=== PATIENT | male | born 1960 | race Caucasian/White ===

== ENCOUNTER 2017-10-14 09:01 | Emergency (ER) | payer MEDICARE, OTHER ==
[~2017-10-14] VITALS: Ht 177.8 cm; Wt 109.0 kg
[~2017-10-14 09:01] MED LIST: ALBU8HFA IH; ATOR40TA PO; DES150T PO; DOCU-28 PO; FLO0.4C PO; HYDR-568 PO; LISI-600 PO; METH500T PO; NORT25CA5 PO; OXYB5TAB11 PO; UMEC1DIS IH
[2017-10-14 09:42] LABS: CLARITY,URINE CLOUDY (Clear); COLOR,URINE YELLOW (Yellow); GLUCOSE, URINE NEGATIVE (Neg); KETONES,URINE NEGATIVE (Neg); LEUKOCYTE ESTERASE ,URINE SMALL (Neg); NITRITES, URINE NEGATIVE (Neg); OCCULT BLOOD,URINE TRACE-INTACT (Neg); PROTEIN,URINE TRACE mg/dl (Neg); UROBILINOGEN,URINE 0.2 E.U/dL (0.2-1.0)
[2017-10-14 09:42] LABS: BASOPHILS # (AUTO) 0.2 X10'3 (0-0.2); BASOPHILS % (AUTO) 1.1 % (0-1); EOSINOPHILS # (AUTO) 0.1 X10'3 (0-0.9); EOSINOPHILS % (AUTO) 0.8 % (0-6); HEMATOCRIT 43.3 % (42.0-52.0); HEMOGLOBIN 14.3 g/dl (14.0-17.9); LYMPHOCYTES # (AUTO) 2.1 X10'3 (1.1-4.8); LYMPHOCYTES % (AUTO) 13.6 % (21-51); MEAN CORPUSCULAR HEMOGLOBIN 29.5 PG (27.0-31.0); MEAN CORPUSCULAR VOLUME 89.4 FL (78-98); MEAN PLATELET VOLUME 8.3 FL (7.4-10.4); MONOCYTES # (AUTO) 1.4 X10'3 (0-0.9); MONOCYTES % (AUTO) 9.2 % (2-12); NEUTROPHILS # (AUTO) 11.5 X10'3 (1.8-7.7); NEUTROPHILS % (AUTO) 75.3 % (42-75); PLATELET COUNT 219 X10'3 (140-440); RED BLOOD COUNT 4.85 X10'6 (4.70-6.10); RED CELL DISTRIBUTION WIDTH 12.9 % (11.5-14.5); WHITE BLOOD COUNT 15.3 X10'3 (4.5-11.0)
[2017-10-14 09:44] LABS: UA COLLECTION TYPE CLN CATCH MIDSTREAM
[2017-10-14 09:48] LABS: BACTERIA,URINE 2+ /HPF (Neg); MUCUS STRANDS MODERATE /LPF (Neg); RBC,URINE 0-2 /HPF (0-2); SQUAMOUS EPITHELIAL CELL,UR FEW /LPF (FEW); WBC CLUMPS,URINE MODERATE /HPF (NEGATIVE); WBC,URINE 50-100 /HPF (0-4)
[2017-10-14 09:55] LABS: ALANINE AMINOTRANSFERASE 54 U/L (12-78); ALBUMIN 3.9 G/DL (3.4-5.0); ALKALINE PHOSPHATASE 78 IU/L (46-116); ANION GAP 9 (8-16); ASPARTATE AMINO TRANSFERASE 25 U/L (10-37); BILIRUBIN,TOTAL 0.6 MG/DL (0.1-1.0); BLOOD UREA NITROGEN 25 MG/DL (7-18); CALCIUM 8.8 MG/DL (8.5-10.1); CHLORIDE 104 MMOL/L (99-107); GLUCOSE 97 MG/DL (70-104); LIPASE 180 U/L (73-393); POTASSIUM 4.5 MMOL/L (3.5-5.1); SODIUM 138 MMOL/L (135-145); TOTAL CARBON DIOXIDE 25.3 MMOL/L (24-32); TOTAL PROTEIN 7.9 G/DL (6.4-8.2); eGFR 77 ML/MIN
[2017-10-14] MEDS ORDERED: CefTRIAXone 2gm/D5W 50ml 50 ML IV ONE (10:00)
[2017-10-14] MEDS ORDERED: PHEN-716 PO (10:44)
[2017-10-14] MEDS ORDERED: NITR100C6 PO (10:44)
[2017-10-14 10:55] VITALS: BP 115/79
== END 2017-10-14 11:00 | disposition home or self-care (01) ==
LOC: ER 09:01
DX: N39.0 Urinary tract infection, site not specified (principal); I10 Essential (primary) hypertension; J44.9 Chronic obstructive pulmonary disease, unspecified; Z56.0 Unemployment, unspecified; Z79.899 Other long term (current) drug therapy
CPT/HCPCS: 36415; 80053; 81001; 83690; 85025; 87088; 96365; 99284; J0696

== ENCOUNTER 2018-04-08 14:32 | Observation (INO) | payer MEDICARE, OTHER ==
[~2018-04-08] VITALS: Ht 177.8 cm; Wt 100.7 kg
[~2018-04-08 14:32] MED LIST changes: +HYDR-4384 PO; -HYDR-568 PO; +NITR100C6 PO; +PHEN-716 PO
[2018-04-08] MEDS ORDERED: LIDOcaine Viscous 15ml cup PO ONE (15:30)
[2018-04-08 15:31] LABS: CLARITY,URINE CLEAR (Clear); COLOR,URINE YELLOW (Yellow); GLUCOSE, URINE NEGATIVE (Neg); KETONES,URINE 40 mg/dl (Neg); LEUKOCYTE ESTERASE ,URINE NEGATIVE (Neg); NITRITES, URINE NEGATIVE (Neg); OCCULT BLOOD,URINE NEGATIVE (Neg); PH,URINE 5.5 (4.8-8.0); PROTEIN,URINE NEGATIVE (Neg); UROBILINOGEN,URINE 0.2 E.U/dL (0.2-1.0)
[2018-04-08 15:32] LABS: UA COLLECTION TYPE CLN CATCH MIDSTREAM
[2018-04-08 15:33] LABS: HEMOGLOBIN 14.9 g/dl (14.0-17.9); RED BLOOD COUNT 4.84 X10'6 (4.70-6.10)
[2018-04-08 15:34] LABS: BASOPHILS % (AUTO) 0.3 % (0-1); EOSINOPHILS # (AUTO) 0.1 X10'3 (0-0.9); EOSINOPHILS % (AUTO) 0.9 % (0-6); LYMPHOCYTES # (AUTO) 2.1 X10'3 (1.1-4.8); LYMPHOCYTES % (AUTO) 26.4 % (21-51); MEAN CORPUSCULAR HEMOGLOBIN 30.7 PG (27.0-31.0); MEAN CORPUSCULAR HGB CONC 33.8 % (33.0-36.5); MONOCYTES # (AUTO) 0.8 X10'3 (0-0.9); MONOCYTES % (AUTO) 9.6 % (2-12); NEUTROPHILS % (AUTO) 62.8 % (42-75); PLATELET COUNT 234 X10'3 (140-440); RED CELL DISTRIBUTION WIDTH 12.4 % (11.5-14.5)
[2018-04-08 15:41] LABS: ALANINE AMINOTRANSFERASE 65 U/L (12-78); ALBUMIN 4.3 G/DL (3.4-5.0); ALBUMIN/GLOBULIN RATIO 1.1 (1.1-1.5); ALKALINE PHOSPHATASE 72 IU/L (46-116); ANION GAP 11 (8-16); ASPARTATE AMINO TRANSFERASE 39 U/L (10-37); BILIRUBIN,TOTAL 0.4 MG/DL (0.1-1.0); BLOOD UREA NITROGEN 19 MG/DL (7-18); BUN/CREATININE RATIO 19.2 (5.4-32.0); CALCIUM 9.2 MG/DL (8.5-10.1); CHLORIDE 99 MMOL/L (99-107); CREATININE 0.99 MG/DL (0.60-1.10); GLUCOSE 96 MG/DL (70-104); POTASSIUM 4.3 MMOL/L (3.5-5.1); SODIUM 137 MMOL/L (135-145); TOTAL CARBON DIOXIDE 26.6 MMOL/L (24-32); TOTAL PROTEIN 8.1 G/DL (6.4-8.2); eGFR 78 ML/MIN
[2018-04-08] MEDS ORDERED: normal saline 1000ml 1,000 ML IV ONE (19:10)
[2018-04-08] MEDS ORDERED: morphine 4 MG/ML inj SYRINge IV ONE (19:10)
[2018-04-08] MEDS ORDERED: HYDROcodone/acetaminophen 5mg/325mg tablet PO PRN (20:50)
[2018-04-08] MEDS ORDERED: ondansetron/PF 4mg/2ml inj IV PRN (20:50)
[2018-04-08] MEDS ORDERED: magnesium hydroxide 30ml (MOM) UD suspension PO PRN (20:50)
[2018-04-08] MEDS ORDERED: acetaminophen 325mg tablet PO PRN (20:50)
[2018-04-08] MEDS ORDERED: mag hydrox/Alum hydrox/simeth 30ml oral suspension PO PRN (20:50)
[2018-04-08] MEDS ORDERED: mag & alum hydrox/simeth susp 40 ML, diphenhydrAMINE oral solution 100 MG, LIDOcaine Vi... PO PRN ×3 (20:55)
[2018-04-08] MEDS ORDERED: non-formulary drug (albuterol inhaler (Pro-Air Inhaler) 2 PUFFS) IH PRN (20:55)
[2018-04-08] MEDS ORDERED: albuterol 2.5 MG/3 ML nebule NEB PRN (21:00)
[2018-04-08] MEDS: dextrose 5%-1/2 normal saline 1,000 ML IV SCH (21:26)
[2018-04-08] MEDS: ciprofloxacin 250mg tablet PO SCH (21:26)
[2018-04-08 21:38] VITALS: BP 125/81
[2018-04-08] MEDS: HYDROcodone/acetaminophen 10/325mg tab PO PRN (23:35)
[2018-04-09] VITALS: BP 150/88
[2018-04-09 07:15] VITALS: BP 111/61
[2018-04-09] MEDS ORDERED: non-formulary drug (Umeclidinium Brm/Vilanterol Tr (Anoro Ellipta 62.5-25 Mcg INH) 1 PUFF) IH SCH (08:00)
[2018-04-09] MEDS ORDERED: lisinopril 20mg tablet PO SCH (08:00)
[2018-04-09] MEDS ORDERED: ANORO ELLIPTA IH SCH (08:00)
[2018-04-09] MEDS ORDERED: atorvastatin 20mg tablet PO SCH (08:00)
[2018-04-09] MEDS ORDERED: ATORVASTATIN CALCIUM PO SCH (08:00)
[2018-04-09] MEDS: dextrose 5%-1/2 normal saline 1,000 ML IV SCH (08:03)
[2018-04-09] MEDS: ciprofloxacin 250mg tablet PO SCH (10:32)
[2018-04-09] MEDS: HYDROcodone/acetaminophen 10/325mg tab PO PRN (10:36)
[2018-04-09 11:54] VITALS: BP 96/55
[2018-04-09] MEDS ORDERED: LACT1CAP26 PO (15:40)
[2018-04-09] MEDS ORDERED: DIPH25CA83 PO (15:40)
[2018-04-09] MEDS ORDERED: CIPR250T4 PO (15:40)
[2018-04-09] MEDS ORDERED: lactobacillus rhamnosus 10,000 MMU CELLS/CAPSULE PO SCH (20:00)
== END 2018-04-09 16:30 | disposition home or self-care (01) ==
LOC: ER 14:32 → CANBEDREQ 19:23 → ED HOLD 20:46 → SUR 3N 21:20
PROVIDERS: ADMIT Internal Medicine; ATTEND Family Medicine
DX: L23.89 Allergic contact dermatitis due to other agents (principal); T37.0X5A Adverse effect of sulfonamides, initial encounter; E86.0 Dehydration; I10 Essential (primary) hypertension; J44.9 Chronic obstructive pulmonary disease, unspecified; K12.1 Other forms of stomatitis; N39.0 Urinary tract infection, site not specified; N41.1 Chronic prostatitis; Z87.891 Personal history of nicotine dependence; Z90.5 Acquired absence of kidney; Y92.89 Other specified places as the place of occurrence of the external cause
CPT/HCPCS: 36415; 80053; 81003; 85025; 87070; 94640; 94760; 96361; 96374; 99285; G0378; J2270

== ENCOUNTER 2019-09-28 08:18 | Emergency (ER) | payer MEDICARE ==
[~2019-09-28] VITALS: Ht 180.3 cm; Wt 94.3 kg
[~2019-09-28 08:18] MED LIST changes: -DES150T PO; +DIPH25CA83 PO; -DOCU-28 PO; -FLO0.4C PO; -HYDR-4384 PO; +LACT1CAP26 PO; -METH500T PO; -NITR100C6 PO; -NORT25CA5 PO; -OXYB5TAB11 PO; -PHEN-716 PO
[2019-09-28 08:27] VITALS: BP 138/88
[2019-09-28] MEDS ORDERED: LIDOcaine 1% W/epiNEPHrine 1:200,000 10ml vial IJ ONE (08:45)
[2019-09-28] MEDS ORDERED: DOXY100C2 PO (09:05)
[2019-09-28] MEDS ORDERED: CEPH500C5 PO (09:05)
== END 2019-09-28 09:25 | disposition home or self-care (01) ==
LOC: ER 08:18
DX: L02.414 Cutaneous abscess of left upper limb (principal); G89.29 Other chronic pain; M54.9 Dorsalgia, unspecified; I10 Essential (primary) hypertension; J44.9 Chronic obstructive pulmonary disease, unspecified; Z98.890 Other specified postprocedural states; Z56.0 Unemployment, unspecified; Z88.2 Allergy status to sulfonamides; Z88.1 Allergy status to other antibiotic agents; Z79.899 Other long term (current) drug therapy
CPT/HCPCS: 10060; 87070; 87077; 87186; 99283

== ENCOUNTER 2019-11-07 09:41 | Emergency (ER) | payer MEDICARE ==
[~2019-11-07] VITALS: Ht 180.3 cm; Wt 90.9 kg
[2019-11-07] MEDS ORDERED: triamcinolone acetonide 40mg/ml inj IM ONE (11:20)
[2019-11-07] MEDS ORDERED: ketorolac tromethamine 15mg/ml inj. IM ONE (11:20)
[2019-11-07 11:23] VITALS: BP 149/101
[2019-11-07] MEDS ORDERED: PRED10TA23 PO (11:30)
[2019-11-07] MEDS ORDERED: HYDR28CR14 TOP (11:30)
== END 2019-11-07 11:47 | disposition home or self-care (01) ==
LOC: ER 09:41
DX: M54.5 Low back pain (principal); L23.7 Allergic contact dermatitis due to plants, except food; I10 Essential (primary) hypertension; J44.9 Chronic obstructive pulmonary disease, unspecified; Z98.890 Other specified postprocedural states; Z56.0 Unemployment, unspecified; Z88.1 Allergy status to other antibiotic agents; Z79.899 Other long term (current) drug therapy
CPT/HCPCS: 96372; 99284; J1885; J3301

== ENCOUNTER 2019-12-16 11:26 | Emergency (ER) | payer MEDICARE ==
[~2019-12-16] VITALS: Ht 180.3 cm; Wt 92.0 kg
[~2019-12-16 11:26] MED LIST changes: +HYDR28CR14 TOP
[2019-12-16] MEDS ORDERED: triamcinolone acetonide 40mg/ml inj IM ONE (13:55)
[2019-12-16] MEDS ORDERED: FAMO10TA41 PO (13:59)
[2019-12-16] MEDS ORDERED: PRED10TA PO (13:59)
[2019-12-16] MEDS ORDERED: DIPH25CA83 PO (13:59)
[2019-12-16 14:06] VITALS: BP 134/91
== END 2019-12-16 14:08 | disposition home or self-care (01) ==
LOC: ER 11:27
DX: L23.7 Allergic contact dermatitis due to plants, except food (principal); I10 Essential (primary) hypertension; J44.9 Chronic obstructive pulmonary disease, unspecified; Z87.440 Personal history of urinary (tract) infections; Z98.890 Other specified postprocedural states; Z56.0 Unemployment, unspecified; Z88.2 Allergy status to sulfonamides; Z88.8 Allergy status to other drugs, medicaments and biological substances; Z79.899 Other long term (current) drug therapy
CPT/HCPCS: 96372; 99283; J3301

== ENCOUNTER 2021-08-22 12:25 | Inpatient (IN) | payer MEDICARE, OTHER ==
[~2021-08-22] VITALS: Ht 177.8 cm; Wt 75.0 kg
[~2021-08-22 12:25] MED LIST changes: -ATOR40TA PO; -DIPH25CA83 PO; +FAMO10TA41 PO; +FLUT16SP26 NAS; -HYDR28CR14 TOP; -LACT1CAP26 PO; +LANS30CA56 PO; -LISI-600 PO; +LISI20TA28 PO; +TRAZ-256 PO; -UMEC1DIS IH
[2021-08-22] MEDS ORDERED: acetaminophen 325mg tablet PO STA (12:33)
[2021-08-22] MEDS ORDERED: piperacillin/tazo 3.375gm/50ml 50 ML IV ONE ×2 (12:35→13:35)
[2021-08-22] MEDS ORDERED: normal saline 1000ML IV soln IV ONE (12:35)
[2021-08-22] MEDS ORDERED: vancomycin/NS 1 GM ADD-VANTAGE 250 ML IV ONE (12:35)
--- NOTE | 2021-08-22 13:23 | NUR ---
Blood cultures drawn.
[2021-08-22 13:28] LABS: BASOPHILS % (AUTO) 0.1 % (0-1); EOSINOPHILS % (AUTO) 0 % (0-6); HEMATOCRIT 37.2 % (42.0-52.0); HEMOGLOBIN 12.2 g/dl (14.0-17.9); LYMPHOCYTES # (AUTO) 0.7 X10'3 (1.1-4.8); LYMPHOCYTES % (AUTO) 3.5 % (21-51); MEAN CORPUSCULAR HEMOGLOBIN 28.6 PG (27.0-31.0); MEAN CORPUSCULAR HGB CONC 32.9 g/dL (33.0-36.5); MEAN CORPUSCULAR VOLUME 86.9 FL (78-98); MEAN PLATELET VOLUME 7.3 FL (7.4-10.4); MONOCYTES # (AUTO) 1.9 X10'3 (0-0.9); NEUTROPHILS # (AUTO) 16.2 X10'3 (1.8-7.7); NEUTROPHILS % (AUTO) 86.4 % (42-75); PLATELET COUNT 287 X10'3 (140-440); RED BLOOD COUNT 4.28 X10'6 (4.70-6.10); RED CELL DISTRIBUTION WIDTH 13.8 % (11.5-14.5); WHITE BLOOD COUNT 18.8 X10'3 (4.5-11.0)
[2021-08-22 14:00] LABS: ALANINE AMINOTRANSFERASE 48 U/L (12-78); ALBUMIN/GLOBULIN RATIO 0.8 (1.1-1.5); ALKALINE PHOSPHATASE 159 IU/L (46-116); ANION GAP 10 (8-16); ASPARTATE AMINO TRANSFERASE 36 U/L (10-37); BILIRUBIN,TOTAL 0.5 MG/DL (0.1-1.0); BLOOD UREA NITROGEN 25 MG/DL (7-18); BUN/CREATININE RATIO 26.3 (5.4-32.0); CALCIUM 8.4 MG/DL (8.5-10.1); CHLORIDE 97 MMOL/L (99-107); CREATININE 0.95 MG/DL (0.60-1.10); GLUCOSE 118 MG/DL (70-104); POTASSIUM 3.6 MMOL/L (3.5-5.1); SODIUM 131 MMOL/L (135-145); eGFR 81 ML/MIN
[2021-08-22] MEDS ORDERED: LISI10TA27 PO ×2 (14:19→14:20)
[2021-08-22 14:28] LABS: C-REACTIVE PROTEIN 24.19 MG/DL (0.0-0.5)
[2021-08-22 14:29] LABS: CLARITY,URINE CLEAR (Clear); GLUCOSE, URINE 100 mg/dl (Neg); KETONES,URINE TRACE mg/dl (Neg); LEUKOCYTE ESTERASE ,URINE NEGATIVE (Neg); NITRITES, URINE NEGATIVE (Neg); OCCULT BLOOD,URINE TRACE-LYSED (Neg); PH,URINE 5.5 (4.8-8.0); PROTEIN,URINE 100 mg/dl (Neg)
[2021-08-22 14:32] LABS: URINE AMPHETAMINE SCREEN POSITIVE (Neg); URINE BARBITUATE SCREEN NEGATIVE (Neg); URINE BENZODIAZEPINES SCREEN NEGATIVE (Neg); URINE CANNABINOID SCREEN POSITIVE (Neg); URINE COCAINE SCREEN NEGATIVE (Neg); URINE METHADONE SCREEN NEGATIVE (Neg); URINE OPIATE SCREEN NEGATIVE (Neg); URINE PHENCYCLIDINE SCREEN NEGATIVE (Neg)
[2021-08-22 14:36] LABS: COLOR,URINE DARK YELLOW (Yellow); UA COLLECTION TYPE VOIDED
[2021-08-22 14:38] LABS: BACTERIA,URINE 1+ /HPF (Neg); RBC,URINE 0-2 /HPF (0-2); SQUAMOUS EPITHELIAL CELL,UR FEW /LPF (FEW); WBC,URINE 0-4 /HPF (0-4)
[2021-08-22 14:39] LABS: MUCUS STRANDS MODERATE /LPF (Neg)
[2021-08-22] MEDS ORDERED: iohexol 300mg/ml 100ml inj. ONE (14:50)
--- NOTE | 2021-08-22 15:03 | NUR ---
OR staff called; patient will go to surgery within 2 hours; will keep patient NPO.
--- NOTE | 2021-08-22 15:32 | NUR ---
Pt is NPO. Last fluid was 100ml water with tylenol and a soda at 0500. No solid food for several days.
[2021-08-22] MEDS ORDERED: clindamycin 600mg/D5W 50ml 50 ML IV ONE (15:35)
[2021-08-22] MEDS ORDERED: ondansetron/PF 4mg/2ml inj IV PRN ×2 (15:50→18:05)
[2021-08-22] MEDS ORDERED: morphine 2 MG/ML inj. syringe IV PRN ×2 (15:50→18:05)
[2021-08-22] MEDS ORDERED: magnesium 2GM in 50ml NS 50 ML IV PRN (15:50)
[2021-08-22] MEDS ORDERED: mag hydrox/Alum hydrox/simeth 30ml oral suspension PO PRN (15:50)
[2021-08-22] MEDS ORDERED: potassium CL 10mEq/100ml bag 100 ML IV PRN (15:50)
[2021-08-22] MEDS ORDERED: potassium Cl 20 mEq SR tablet PO PRN ×2 (15:50)
[2021-08-22] MEDS ORDERED: magnesium hydroxide 30ml (MOM) UD suspension PO PRN (15:50)
[2021-08-22] MEDS ORDERED: acetaminophen 325mg tablet PO PRN (15:50)
[2021-08-22] MEDS ORDERED: magnesium 4gm in 100ml NS 100 ML IV PRN (15:50)
[2021-08-22] MEDS ORDERED: magnesium Cl slow-release 64mg tablet PO PRN (15:50)
[2021-08-22] MEDS ORDERED: vancomycin/NS 1 GM ADD-VANTAGE 250 ML IV SCH (16:00)
[2021-08-22] MEDS: normal saline 1000ml 1,000 ML IV SCH ×3 (16:10→21:50)
--- NOTE | 2021-08-22 17:09 | NUR ---
Report given to PATTY Luciano in the Recovery Room.
[2021-08-22] MEDS ORDERED: sevoflurane 250ml liquid IH ONE (17:58)
[2021-08-22] MEDS ORDERED: ringers solution, lacted 1,000 ML IV SCH (18:05)
[2021-08-22] MEDS ORDERED: HYDROmorphone/PF 0.2 MG/ML SYRINGE IV PRN ×2 (18:05)
[2021-08-22] MEDS ORDERED: acetaminophen 1,000mg/100ml IV 100 ML IV PRN (18:05)
[2021-08-22] MEDS ORDERED: proCHLORperazine 10 MG/2 ml inj IV PRN (18:05)
[2021-08-22] MEDS ORDERED: hydrALAZINE 20mg/ml inj. IV PRN (18:05)
[2021-08-22] MEDS ORDERED: labetalol 20mg/4ml (5mg/ml) syringe IV PRN (18:05)
[2021-08-22] MEDS ORDERED: morphine 4 MG/ML inj SYRINge IV PRN (18:05)
[2021-08-22] MEDS ORDERED: meperidine/PF 25mg/ml syringe IV PRN (18:05)
[2021-08-22] MEDS ORDERED: midazolam 1 mg/ML 2ml injection ONE (18:07)
[2021-08-22] MEDS ORDERED: fentaNYL /PF 50mcg/ml 5ml ampule ONE (18:26)
[2021-08-22] MEDS ORDERED: albuterol 60 PUFF/8GM Inhaler IH ONE (18:30)
[2021-08-22] MEDS ORDERED: ondansetron/PF 4mg/2ml inj ONE (18:42)
[2021-08-22] MEDS ORDERED: dexamethasone sod phosphate 4mg/ml inj. ONE (18:42)
[2021-08-22] MEDS ORDERED: propofol inj 20 ML IV ONE (18:42)
[2021-08-22] MEDS ORDERED: LIDOcaine 1%/PF 5ML 10 MG/ML VIAL ONE (18:42)
[2021-08-22] MEDS ORDERED: LIDOcaine 2% (20mg/ml) 5ml vial ONE (18:42)
[2021-08-22] MEDS ORDERED: albumin (Human) 5% 250ml 250 ML IV ONE (18:57)
[2021-08-22 19:17] VITALS: BP 97/50
--- NOTE | 2021-08-22 19:17 | NUR ---
Received from OR via SURGICAL , accompanied by Anesthesiologist LAKIA and report given by Anesthesiolgist. PATIENT WITH 20G PIV IN LEFT EXTERNAL JUGULAR RUNNING LR AT 100. 10L MASK ON WITH 199% SATURATIONS. LEFT LE FROM THIGH TO CALF IS DRESSED IN JAYLAN BANDAGE AND WOUND VAC PRESENT WITH BLOODY DRAINAGE IN CANNISTER PULLING AT 125 MM HG. NO AUDIBLE LEAKS DETECTED. VSS AT THIS TIME. Addendum: 08/22/21 at 1938 by Yogi Lynn RN, RN Amended: Links added.
[2021-08-22 19:20] VITALS: BP 97/60
[2021-08-22 19:30] VITALS: BP 108/67
[2021-08-22 19:42] VITALS: BP 92/65
[2021-08-22 19:52] VITALS: BP 101/70
[2021-08-22 20:00] VITALS: BP 101/64
[2021-08-22] MEDS: K and/or MAG REPLACEMENT MC SCH (20:00)
--- NOTE | 2021-08-22 20:07 | NUR ---
Report called to receiving nurse. Transferred via SURGICAL BED WITH GLASSES AND TWO PIECES OF DENTURES IN A LABELED CUP. PLACED THESE ITEMS AT BEDSIDE 3024B. Special Issues communicated to receiving nurse DEMETRIUS WHO WAS PRESENT TO ACCEPT CARE OF PATIENT. Addendum: 08/22/21 at 2010 by Yogi Lynn RN, RN Amended: Links added.
[2021-08-22] MEDS: docusate sod 100mg capsule PO SCH (21:22)
[2021-08-23] VITALS (7 sets, daily range): BP systolic 87–105; BP diastolic 49–61
[2021-08-23] MEDS: piperacillin/tazo 3.375gm/50ml 50 ML IV SCH ×3 (00:15→18:09)
[2021-08-23] MEDS: VANCOMYCIN 1GM/200ML IVPB 200 ML IV SCH ×2 (01:21→13:52)
[2021-08-23] MEDS: CLINDAMYCIN 300mg/NS 50ml IVPB 50 ML IV SCH ×2 (02:44→07:35)
--- NOTE | 2021-08-23 06:24 | NUR ---
Problems reprioritized. Patient report given, questions answered & plan of care reviewed with PATTY Vasquez..
[2021-08-23 07:21] LABS: BASOPHILS % (AUTO) 0.1 % (0-1); EOSINOPHILS % (AUTO) 0 % (0-6); HEMATOCRIT 30.5 % (42.0-52.0); LYMPHOCYTES # (AUTO) 0.5 X10'3 (1.1-4.8); LYMPHOCYTES % (AUTO) 3.5 % (21-51); MEAN CORPUSCULAR HEMOGLOBIN 28.7 PG (27.0-31.0); MEAN CORPUSCULAR HGB CONC 32.9 g/dL (33.0-36.5); MEAN CORPUSCULAR VOLUME 87.2 FL (78-98); MEAN PLATELET VOLUME 7.6 FL (7.4-10.4); MONOCYTES # (AUTO) 0.7 X10'3 (0-0.9); MONOCYTES % (AUTO) 5.2 % (2-12); NEUTROPHILS # (AUTO) 12.7 X10'3 (1.8-7.7); NEUTROPHILS % (AUTO) 91.2 % (42-75); PLATELET COUNT 238 X10'3 (140-440); RED CELL DISTRIBUTION WIDTH 13.7 % (11.5-14.5); WHITE BLOOD COUNT 13.9 X10'3 (4.5-11.0)
[2021-08-23] MEDS: docusate sod 100mg capsule PO SCH ×2 (07:33→19:31)
[2021-08-23] MEDS: oxyCODONE/APAP 10/325mg tablet PO PRN ×3 (07:35→19:31)
[2021-08-23] MEDS: enoxaparin 40mg/0.4ml syringe SUBCUT SCH (07:36)
[2021-08-23 07:48] LABS: ALANINE AMINOTRANSFERASE 42 U/L (12-78); ALBUMIN 2.3 G/DL (3.4-5.0); ALBUMIN/GLOBULIN RATIO 0.7 (1.1-1.5); ANION GAP 8 (8-16); ASPARTATE AMINO TRANSFERASE 26 U/L (10-37); BILIRUBIN,TOTAL 0.5 MG/DL (0.1-1.0); BLOOD UREA NITROGEN 16 MG/DL (7-18); BUN/CREATININE RATIO 24.2 (5.4-32.0); CALCIUM 7.9 MG/DL (8.5-10.1); CHLORIDE 106 MMOL/L (99-107); CREATININE 0.66 MG/DL (0.60-1.10); GLUCOSE 178 MG/DL (70-104); POTASSIUM 4.3 MMOL/L (3.5-5.1); SODIUM 137 MMOL/L (135-145); TOTAL CARBON DIOXIDE 22.8 MMOL/L (24-32); TOTAL PROTEIN 5.8 G/DL (6.4-8.2); eGFR > 90 ML/MIN
[2021-08-23] MEDS: normal saline 1000ml 1,000 ML IV SCH (07:56)
[2021-08-23] MEDS: K and/or MAG REPLACEMENT MC SCH ×2 (08:00→20:00)
[2021-08-23 08:58] LABS: ALKALINE PHOSPHATASE 142 IU/L (46-116)
[2021-08-23] MEDS: clindamycin-Cleocin 900mg/D5W 50 ML IV SCH (10:40)
--- NOTE | 2021-08-23 11:59 | NUR ---
pharmacy placed [facility] trough order. [facility]
[2021-08-23] MEDS ORDERED: ringers solution, lacted 1,000 ML IV ONE (17:00)
--- NOTE | 2021-08-23 18:08 | NUR ---
Pt. in room 3024B missing his clindamycin 900mg bag are we able to get one sent up on next run. Thanks Christina PCU
--- NOTE | 2021-08-23 18:27 | NUR ---
Problems reprioritized. Patient report given, questions answered & plan of care reviewed with Aster BRAMBILA
--- NOTE | 2021-08-23 18:28 | NUR ---
Patient in room PCU 3024. I have received report from PATTY Vasquez and had the opportunity to ask questions and assume patient care.
--- NOTE | 2021-08-23 18:40 | NUR ---
Per Dr. Beavers order due not hang LR if existing fluid orders; NS running currently. [facility]
[2021-08-24] VITALS (13 sets, daily range): BP systolic 90–122; BP diastolic 52–79
[2021-08-24] MEDS ORDERED: VANCOMYCIN LEVEL IV ONE (00:30)
[2021-08-24] MEDS: VANCOMYCIN 1GM/200ML IVPB 200 ML IV SCH (01:00)
[2021-08-24] MEDS: piperacillin/tazo 3.375gm/50ml 50 ML IV SCH ×3 (02:06→16:00)
[2021-08-24] MEDS: oxyCODONE/APAP 10/325mg tablet PO PRN ×3 (02:13→19:19)
[2021-08-24 04:10] LABS: ALANINE AMINOTRANSFERASE 34 U/L (12-78); ALBUMIN/GLOBULIN RATIO 0.6 (1.1-1.5); ALKALINE PHOSPHATASE 109 IU/L (46-116); ANION GAP 8 (8-16); ASPARTATE AMINO TRANSFERASE 17 U/L (10-37); BILIRUBIN,TOTAL 0.2 MG/DL (0.1-1.0); BLOOD UREA NITROGEN 24 MG/DL (7-18); BUN/CREATININE RATIO 32.4 (5.4-32.0); CALCIUM 7.5 MG/DL (8.5-10.1); CHLORIDE 107 MMOL/L (99-107); CREATININE 0.74 MG/DL (0.60-1.10); GLUCOSE 115 MG/DL (70-104); POTASSIUM 3.9 MMOL/L (3.5-5.1); SODIUM 138 MMOL/L (135-145); TOTAL CARBON DIOXIDE 22.6 MMOL/L (24-32); TOTAL PROTEIN 5.1 G/DL (6.4-8.2); eGFR > 90 ML/MIN
[2021-08-24] MEDS ORDERED: ringers solution, lacted 1,000 ML IV SCH ×2 (05:00→08:10)
[2021-08-24] MEDS ORDERED: famotidine 20mg tablet PO ONE (05:30)
[2021-08-24 05:53] LABS: BASOPHILS % (AUTO) 0.1 % (0-1); EOSINOPHILS % (AUTO) 0.2 % (0-6); HEMATOCRIT 27.7 % (42.0-52.0); HEMOGLOBIN 9.1 g/dl (14.0-17.9); LYMPHOCYTES # (AUTO) 1.5 X10'3 (1.1-4.8); LYMPHOCYTES % (AUTO) 11.5 % (21-51); MEAN CORPUSCULAR HEMOGLOBIN 28.8 PG (27.0-31.0); MEAN CORPUSCULAR HGB CONC 32.9 g/dL (33.0-36.5); MEAN CORPUSCULAR VOLUME 87.5 FL (78-98); MEAN PLATELET VOLUME 7.6 FL (7.4-10.4); MONOCYTES # (AUTO) 1.4 X10'3 (0-0.9); MONOCYTES % (AUTO) 10.6 % (2-12); NEUTROPHILS # (AUTO) 9.9 X10'3 (1.8-7.7); NEUTROPHILS % (AUTO) 77.6 % (42-75); PLATELET COUNT 271 X10'3 (140-440); RED BLOOD COUNT 3.17 X10'6 (4.70-6.10); RED CELL DISTRIBUTION WIDTH 14.1 % (11.5-14.5); WHITE BLOOD COUNT 12.8 X10'3 (4.5-11.0)
[2021-08-24 06:03] LABS: APTT 28 SECONDS (22-32)
--- NOTE | 2021-08-24 06:53 | NUR ---
Problems reprioritized. Patient report given, questions answered & plan of care reviewed with PATTY Pineda.
[2021-08-24] MEDS: normal saline 1000ml 1,000 ML IV SCH ×2 (07:50→17:50)
[2021-08-24] MEDS ORDERED: FENTANYL CITRATE/PF 50 MCG/1 ML VIAL ONE ×2 (07:56)
[2021-08-24] MEDS ORDERED: midazolam 1 mg/ML 2ml injection ONE (07:56)
[2021-08-24] MEDS: K and/or MAG REPLACEMENT MC SCH ×2 (08:00→19:21)
[2021-08-24] MEDS: docusate sod 100mg capsule PO SCH ×2 (08:00→19:20)
[2021-08-24] MEDS ORDERED: propofol inj 20 ML IV ONE (08:03)
[2021-08-24] MEDS ORDERED: LIDOcaine 2% (20mg/ml) 5ml vial ONE (08:03)
[2021-08-24] MEDS ORDERED: morphine 2 MG/ML inj. syringe IV PRN (08:10)
[2021-08-24] MEDS ORDERED: meperidine/PF 25mg/ml syringe IV PRN ×2 (08:10)
[2021-08-24] MEDS ORDERED: proCHLORperazine 10 MG/2 ml inj IV PRN (08:10)
[2021-08-24] MEDS ORDERED: morphine 4 MG/ML inj SYRINge IV PRN (08:10)
[2021-08-24] MEDS ORDERED: ondansetron/PF 4mg/2ml inj IV PRN (08:10)
[2021-08-24] MEDS ORDERED: meperidine/PF 25mg/ml syringe ONE (08:18)
--- NOTE | 2021-08-24 08:52 | NUR ---
Received from OR via BED, accompanied by Anesthesiologist MARISABEL and report given by Anesthesiolgist. PT. ARRIVED. ORAL AIRWAY IN PLACE. O2 10 L VIA MASK, 18 G IV IN L. AC CDI WITH LR INFUSING 100 ML/HR. LLE WRAPPED FROM THIGH TO FOOT IN JAYLAN WRAP WITH HEMOVAC IN PLACE WITH RED DRAINAGE IN TUBING. PALPABLE PULSES ON ALL EXTREMITIES, INTACT SENSATION. VSS. NO REPORT OF PAIN. PT. RESTING COMFORTABLY. Addendum: 08/24/21 at 0909 by Stacey Davis RN Amended: Links added.
--- NOTE | 2021-08-24 09:27 | NUR ---
PT. ALERT EATING CRACKERS AND TAKING FLUIDS. DENIES PAIN. VSS Addendum: 08/24/21 at 0928 by Stacey Davis RN Amended: Links added.
[2021-08-24] MEDS: meperidine/PF 25mg/ml syringe IV PRN ×2 (09:39→22:38)
--- NOTE | 2021-08-24 09:42 | NUR ---
PRN PAIN MEDICATION GIVEN FOR TRANSPORT. PT. REPORTED 01/12 PAIN WITH PREPARATIONS TO MOVE TO FLOOR. Addendum: 08/24/21 at 0943 by Stacey Davis RN Amended: Links added.
--- NOTE | 2021-08-24 10:02 | NUR ---
REPORT CALLED TO [facility] ANIMAL CARE PROVIDER. VSS, LLE DRESSING CDI, HEMOVAC FUNCTIONING WITH DRAINAGE IN TUBING STATED PREVIOUSLY. PRN PAIN MEDICATION USED FOR TRANSPORT. PT. STATES DECREASED PAIN. TRANSPORTED ON TELE BOX 10. IV IN L. AC 18 G CDI WITH LR INFUSING AT 100ML/HR. WOUND VAC RETURNED TO FLOOR WITH PT. RN INFORMED PT. HUNGRY. PT. TOLERATED CRACKERS AND FLUIDS WITHOUT ISSUES. ALL DISCHARGE CRITERIA MET. ALL QUESTIONS ANSWERED. CHART TO UNIT SECCRETARY. STAFF IN ROOM. MARISABEL STATED PT. DID NOT NEED TO BE ON TELE BUT [facility] STATES TELE. NURSING SOFTWARE CLERK NOT AVAILABLE X 4 TO LOOK INTO POSSIBLE ROOM CHANGE. INFORMATION PASSED ON TO RN IN REPORT FOR FOLLOW UP. BED LOW. SIDERAILS X 2, CALL LIGHT IN REACH. Addendum: 08/24/21 at 1007 by Stacey Davis RN Amended: Links added.
[2021-08-24] MEDS: clindamycin-Cleocin 900mg/D5W 50 ML IV SCH ×4 (11:11→23:57)
[2021-08-24] MEDS: VANCOmycin 1250MG/NS 250ml Bag 250 ML IV SCH (16:37)
[2021-08-24] MEDS: traZODone 50mg tablet PO SCH (19:20)
[2021-08-24] MEDS: morphine 2 MG/ML inj. syringe IV PRN (20:23)
[2021-08-25] MEDS: VANCOmycin 1250MG/NS 250ml Bag 250 ML IV SCH (00:58)
[2021-08-25] MEDS: normal saline 1000ml 1,000 ML IV SCH ×3 (03:50→17:59)
[2021-08-25] MEDS: oxyCODONE/APAP 10/325mg tablet PO PRN ×4 (04:02→20:20)
[2021-08-25 06:00] VITALS: BP 96/55
[2021-08-25 06:56] LABS: BASOPHILS % (AUTO) 0.2 % (0-1); EOSINOPHILS # (AUTO) 0.1 X10'3 (0-0.9); EOSINOPHILS % (AUTO) 1.4 % (0-6); HEMATOCRIT 25.6 % (42.0-52.0); HEMOGLOBIN 8.6 g/dl (14.0-17.9); LYMPHOCYTES # (AUTO) 1.8 X10'3 (1.1-4.8); LYMPHOCYTES % (AUTO) 18.6 % (21-51); MEAN CORPUSCULAR HEMOGLOBIN 29.1 PG (27.0-31.0); MEAN CORPUSCULAR HGB CONC 33.6 g/dL (33.0-36.5); MEAN CORPUSCULAR VOLUME 86.6 FL (78-98); MEAN PLATELET VOLUME 7.6 FL (7.4-10.4); MONOCYTES # (AUTO) 1.1 X10'3 (0-0.9); NEUTROPHILS # (AUTO) 6.5 X10'3 (1.8-7.7); NEUTROPHILS % (AUTO) 67.8 % (42-75); PLATELET COUNT 304 X10'3 (140-440); RED BLOOD COUNT 2.95 X10'6 (4.70-6.10); RED CELL DISTRIBUTION WIDTH 13.9 % (11.5-14.5); WHITE BLOOD COUNT 9.5 X10'3 (4.5-11.0)
[2021-08-25 07:19] LABS: ALANINE AMINOTRANSFERASE 77 U/L (12-78); ALBUMIN 2.1 G/DL (3.4-5.0); ALBUMIN/GLOBULIN RATIO 0.7 (1.1-1.5); ALKALINE PHOSPHATASE 212 IU/L (46-116); ANION GAP 12 (8-16); ASPARTATE AMINO TRANSFERASE 49 U/L (10-37); BILIRUBIN,TOTAL 0.3 MG/DL (0.1-1.0); BLOOD UREA NITROGEN 13 MG/DL (7-18); BUN/CREATININE RATIO 15.9 (5.4-32.0); CALCIUM 7.3 MG/DL (8.5-10.1); CHLORIDE 104 MMOL/L (99-107); CREATININE 0.82 MG/DL (0.60-1.10); GLUCOSE 94 MG/DL (70-104); SODIUM 141 MMOL/L (135-145); TOTAL CARBON DIOXIDE 24.7 MMOL/L (24-32); TOTAL PROTEIN 5.2 G/DL (6.4-8.2); eGFR > 90 ML/MIN
[2021-08-25] MEDS: K and/or MAG REPLACEMENT MC SCH ×2 (08:00→20:00)
[2021-08-25] MEDS: docusate sod 100mg capsule PO SCH ×2 (08:58→20:19)
[2021-08-25] MEDS: clindamycin-Cleocin 900mg/D5W 50 ML IV SCH ×2 (08:58→16:08)
[2021-08-25] MEDS: enoxaparin 40mg/0.4ml syringe SUBCUT SCH (08:59)
[2021-08-25] MEDS: morphine 2 MG/ML inj. syringe IV PRN (09:04)
[2021-08-25] MEDS: piperacillin/tazo 3.375gm/50ml 50 ML IV SCH ×3 (10:01→16:00)
[2021-08-25 11:00] VITALS: BP 136/53
[2021-08-25] MEDS: vancomycin inj 1,250 MG in dextrose 5%-water 250 ML IV SCH (13:46)
[2021-08-25 15:00] VITALS: BP 117/65
[2021-08-25 18:00] VITALS: BP 126/63
[2021-08-25] MEDS: traZODone 50mg tablet PO SCH (20:19)
[2021-08-26] MEDS ORDERED: VANCOMYCIN LEVEL IV ONE (00:30)
[2021-08-26] MEDS: clindamycin-Cleocin 900mg/D5W 50 ML IV SCH ×3 (00:37→16:00)
[2021-08-26] MEDS: piperacillin/tazo 3.375gm/50ml 50 ML IV SCH ×3 (00:52→17:06)
[2021-08-26] MEDS: vancomycin inj 1,250 MG in dextrose 5%-water 250 ML IV SCH (01:00)
[2021-08-26 01:43] LABS: ALANINE AMINOTRANSFERASE 114 U/L (12-78); ALBUMIN/GLOBULIN RATIO 0.6 (1.1-1.5); ALKALINE PHOSPHATASE 269 IU/L (46-116); ANION GAP 9 (8-16); ASPARTATE AMINO TRANSFERASE 90 U/L (10-37); BILIRUBIN,TOTAL 0.4 MG/DL (0.1-1.0); BLOOD UREA NITROGEN 14 MG/DL (7-18); BUN/CREATININE RATIO 16.1 (5.4-32.0); CALCIUM 7.6 MG/DL (8.5-10.1); CHLORIDE 105 MMOL/L (99-107); CREATININE 0.87 MG/DL (0.60-1.10); GLUCOSE 93 MG/DL (70-104); POTASSIUM 4.5 MMOL/L (3.5-5.1); SODIUM 141 MMOL/L (135-145); TOTAL CARBON DIOXIDE 26.8 MMOL/L (24-32); TOTAL PROTEIN 5.2 G/DL (6.4-8.2); eGFR 89 ML/MIN
[2021-08-26 01:44] LABS: VANCOMYCIN,TROUGH 10.2 UG/ML (6.0-14.0)
[2021-08-26 04:00] VITALS: BP 129/66
[2021-08-26] MEDS: oxyCODONE/APAP 10/325mg tablet PO PRN ×4 (04:05→20:06)
--- NOTE | 2021-08-26 04:06 | NUR ---
Earlier when I went into room to check on patient after receiving a pain medication, patient informed RN that IV site was hurting. PIV site was red. At this time, patient would not allow for RN to remove it or start a new PIV and started complaining stating "you guys are trying to kill me, I am not having another IV, order me a PICc line". Patient was very angry and told RN to " get out of my room and leave me alone. Informed charge nurse of incident. A little later, charge machine operator went in to try to talk to patient, but his eyes were closed and he appeared to be sleeping. At around 2345, patient was awake and charge machine operator went in to talk to him. Pt. still refused for a new IV to be started,despite being educated on the importance of his upcoming antibiotics due at midnight. Addendum: 08/27/21 at 5634 by Devorah Romero RN time correction: above charting submitted 08/26/21 at 9195
[2021-08-26 06:00] VITALS: BP 111/67
[2021-08-26 06:00] LABS: BASOPHILS % (AUTO) 0.3 % (0-1); EOSINOPHILS # (AUTO) 0.3 X10'3 (0-0.9); EOSINOPHILS % (AUTO) 2.7 % (0-6); HEMATOCRIT 28.6 % (42.0-52.0); HEMOGLOBIN 9.4 g/dl (14.0-17.9); LYMPHOCYTES # (AUTO) 1.6 X10'3 (1.1-4.8); LYMPHOCYTES % (AUTO) 14.6 % (21-51); MEAN CORPUSCULAR HEMOGLOBIN 28.9 PG (27.0-31.0); MEAN CORPUSCULAR VOLUME 87.5 FL (78-98); MEAN PLATELET VOLUME 7.5 FL (7.4-10.4); MONOCYTES # (AUTO) 1.3 X10'3 (0-0.9); MONOCYTES % (AUTO) 12.4 % (2-12); NEUTROPHILS # (AUTO) 7.5 X10'3 (1.8-7.7); PLATELET COUNT 414 X10'3 (140-440); RED BLOOD COUNT 3.26 X10'6 (4.70-6.10); RED CELL DISTRIBUTION WIDTH 13.6 % (11.5-14.5); WHITE BLOOD COUNT 10.8 X10'3 (4.5-11.0)
[2021-08-26] MEDS: docusate sod 100mg capsule PO SCH ×2 (07:09→20:06)
[2021-08-26] MEDS: enoxaparin 40mg/0.4ml syringe SUBCUT SCH (07:10)
[2021-08-26] MEDS: K and/or MAG REPLACEMENT MC SCH ×2 (08:00→20:00)
[2021-08-26] MEDS ORDERED: fluticasone nasal spray 16GM bottle NS SCH (08:00)
[2021-08-26] MEDS ORDERED: VANCOMYCIN 1,500MG inj. 1,500 MG in dextrose 5% water 500ml 300 ML IV SCH (10:00)
[2021-08-26 11:00] VITALS: BP 122/82
--- NOTE | 2021-08-26 12:12 | NUR ---
PAGER ID: [phone] MESSAGE: PHILLIP ON [phone], CAN YOU CALL ME REGARDING [id number] PLEASE, THANK YOU
[2021-08-26] MEDS: fluticasone nasal spray 16GM bottle NS SCH (13:23)
--- NOTE | 2021-08-26 16:30 | NUR ---
Received from [facility] via wheelchair, accompanied by 2 Nurses and report given by Chapito. PT. ARRIVED. 18 G IV IN L. AC . LLE WRAPPED FROM THIGH TO FOOT IN JAYLAN WRAP WITH DAVOL drainage IN PLACE WITH RED DRAINAGE IN TUBING. PALPABLE PULSES ON ALL EXTREMITIES, INTACT SENSATION. VSS as follow T98.2 HR80 R20 [id number] . NO REPORT OF PAIN. PT. RESTING COMFORTABLY.
[2021-08-26 16:42] VITALS: BP 121/72
--- NOTE | 2021-08-26 16:43 | NUR ---
Transferred pt to [facility] BY 1610, in stable condition, accompanied by 2 attendants via W/C. Report given to Kallie/PATTY.
--- NOTE | 2021-08-26 18:16 | NUR ---
Problems reprioritized. Patient report given, questions answered & plan of care reviewed with PATTY GARCIA
--- NOTE | 2021-08-26 18:20 | NUR ---
Patient in room OZ 357. I have received report from Kallie BRAMBILA and had the opportunity to ask questions and assume patient care.
[2021-08-26 20:00] VITALS: BP 124/82
[2021-08-26] MEDS: traZODone 50mg tablet PO SCH (20:06)
[2021-08-27] VITALS: BP 116/75
[2021-08-27] MEDS: oxyCODONE/APAP 10/325mg tablet PO PRN ×4 (02:22→20:42)
--- NOTE | 2021-08-27 06:45 | NUR ---
Problems reprioritized. Patient report given, questions answered & plan of care reviewed with Tim BRAMBILA.
[2021-08-27 07:18] LABS: BASOPHILS % (AUTO) 0.3 % (0-1); EOSINOPHILS # (AUTO) 0.4 X10'3 (0-0.9); EOSINOPHILS % (AUTO) 3.5 % (0-6); HEMATOCRIT 33.1 % (42.0-52.0); HEMOGLOBIN 10.8 g/dl (14.0-17.9); LYMPHOCYTES # (AUTO) 1.4 X10'3 (1.1-4.8); MEAN CORPUSCULAR HEMOGLOBIN 28.5 PG (27.0-31.0); MEAN CORPUSCULAR HGB CONC 32.7 g/dL (33.0-36.5); MEAN CORPUSCULAR VOLUME 87.2 FL (78-98); MEAN PLATELET VOLUME 7.1 FL (7.4-10.4); MONOCYTES # (AUTO) 1.1 X10'3 (0-0.9); MONOCYTES % (AUTO) 10.7 % (2-12); NEUTROPHILS # (AUTO) 7.7 X10'3 (1.8-7.7); NEUTROPHILS % (AUTO) 72.5 % (42-75); PLATELET COUNT 517 X10'3 (140-440); RED CELL DISTRIBUTION WIDTH 13.6 % (11.5-14.5); WHITE BLOOD COUNT 10.6 X10'3 (4.5-11.0)
[2021-08-27 07:38] LABS: ALANINE AMINOTRANSFERASE 106 U/L (12-78); ALBUMIN 2.4 G/DL (3.4-5.0); ALBUMIN/GLOBULIN RATIO 0.6 (1.1-1.5); ALKALINE PHOSPHATASE 304 IU/L (46-116); ANION GAP 9 (8-16); ASPARTATE AMINO TRANSFERASE 51 U/L (10-37); BILIRUBIN,TOTAL 0.4 MG/DL (0.1-1.0); BLOOD UREA NITROGEN 12 MG/DL (7-18); BUN/CREATININE RATIO 14.3 (5.4-32.0); CALCIUM 8.6 MG/DL (8.5-10.1); CHLORIDE 102 MMOL/L (99-107); CREATININE 0.84 MG/DL (0.60-1.10); GLUCOSE 88 MG/DL (70-104); POTASSIUM 5.1 MMOL/L (3.5-5.1); SODIUM 139 MMOL/L (135-145); TOTAL CARBON DIOXIDE 28.3 MMOL/L (24-32); TOTAL PROTEIN 6.5 G/DL (6.4-8.2); eGFR > 90 ML/MIN
[2021-08-27 08:00] VITALS: BP 113/73
[2021-08-27] MEDS: piperacillin/tazo 3.375gm/50ml 50 ML IV SCH ×3 (08:00→16:00)
[2021-08-27] MEDS: clindamycin-Cleocin 900mg/D5W 50 ML IV SCH ×3 (08:00→16:00)
[2021-08-27] MEDS: docusate sod 100mg capsule PO SCH ×2 (08:17→20:39)
[2021-08-27] MEDS: enoxaparin 40mg/0.4ml syringe SUBCUT SCH (08:17)
[2021-08-27] MEDS: fluticasone nasal spray 16GM bottle NS SCH (08:19)
[2021-08-27] MEDS: K and/or MAG REPLACEMENT MC SCH ×2 (08:19→20:00)
[2021-08-27 12:00] VITALS: BP 141/63
--- NOTE | 2021-08-27 14:46 | NUR ---
Initial: Pt admitted w/ LLE necrotizing fasciitis and sepsis secondary to the former per EMR. Pt s/p extensive debridement 08/22 and repeat I&D 08/24 w/ wound vac per EMR. Currently NPO for OR today though was previously on Regular diet w/ 100% intake of meals. Pt may benefit from Lui Smoothies BID as well as additional protein w/ meals once diet advanced back to Regular. LBM 08/25 receiving routine colace. Limited nutrition interventions at this time, will continue to monitor. Recs: 1. Advance to Regular diet as medically indicated 2. Lui smoothies BID once diet advanced 3. Consider double protein w/ meals once diet advanced 4. Bowel care per rx 5. Scaled wts Addendum: 08/27/21 at [address] Amended: Links added.
--- NOTE | 2021-08-27 17:16 | NUR ---
PAGER ID: [phone] MESSAGE: Lupe JiménezB: patient refusing IV placement and requesting picc
--- NOTE | 2021-08-27 18:45 | NUR ---
Patient in room OZ 357. I have received report from Tim BRAMBILA and had the opportunity to ask questions and assume patient care.
[2021-08-27 19:00] VITALS: BP 129/72
--- NOTE | 2021-08-27 19:06 | NUR ---
Ct called and have changed the date to tomorrow as pt. refusing IV to be inserted, so we are awaiting for a picc to be placed tomorrow.
[2021-08-27] MEDS: traZODone 50mg tablet PO SCH (20:39)
[2021-08-27] MEDS ORDERED: VANCOMYCIN LEVEL IV ONE (21:30)
[2021-08-28] VITALS: BP 130/64
[2021-08-28] MEDS: oxyCODONE/APAP 10/325mg tablet PO PRN ×4 (04:56→21:46)
--- NOTE | 2021-08-28 06:30 | NUR ---
Problems reprioritized. Patient report given, questions answered & plan of care reviewed with Cristine BRAMBILA.
[2021-08-28] MEDS: enoxaparin 40mg/0.4ml syringe SUBCUT SCH ×2 (06:40→08:39)
[2021-08-28 07:18] VITALS: BP 107/70
[2021-08-28] MEDS: piperacillin/tazo 3.375gm/50ml 50 ML IV SCH ×3 (08:00→15:41)
[2021-08-28] MEDS: K and/or MAG REPLACEMENT MC SCH ×2 (08:00→20:00)
[2021-08-28] MEDS: clindamycin-Cleocin 900mg/D5W 50 ML IV SCH ×3 (08:00→15:41)
[2021-08-28] MEDS: docusate sod 100mg capsule PO SCH ×2 (08:35→20:50)
[2021-08-28] MEDS: fluticasone nasal spray 16GM bottle NS SCH (08:38)
--- NOTE | 2021-08-28 08:45 | NUR ---
PAGER ID: [phone] MESSAGE: [phone] Mary Andrade: patient refusing PIV. demanding to have a PICC line. unable to give Cleocin or Zosyn. thanks! tyshawn [phone]
--- NOTE | 2021-08-28 09:07 | NUR ---
Pages sent to PICC RN... [id number] Mary Andrade: patient needs midline placed at your soonest convenience. thank you! :)
[2021-08-28 10:09] LABS: BASOPHILS % (AUTO) 0.4 % (0-1); EOSINOPHILS # (AUTO) 0.4 X10'3 (0-0.9); EOSINOPHILS % (AUTO) 3.7 % (0-6); HEMATOCRIT 32.9 % (42.0-52.0); HEMOGLOBIN 10.7 g/dl (14.0-17.9); LYMPHOCYTES % (AUTO) 17.6 % (21-51); MEAN CORPUSCULAR HEMOGLOBIN 28.2 PG (27.0-31.0); MEAN CORPUSCULAR HGB CONC 32.5 g/dL (33.0-36.5); MEAN CORPUSCULAR VOLUME 86.8 FL (78-98); MEAN PLATELET VOLUME 6.8 FL (7.4-10.4); MONOCYTES # (AUTO) 1.2 X10'3 (0-0.9); MONOCYTES % (AUTO) 10.5 % (2-12); NEUTROPHILS # (AUTO) 7.6 X10'3 (1.8-7.7); NEUTROPHILS % (AUTO) 67.8 % (42-75); PLATELET COUNT 588 X10'3 (140-440); RED BLOOD COUNT 3.79 X10'6 (4.70-6.10); RED CELL DISTRIBUTION WIDTH 13.7 % (11.5-14.5); WHITE BLOOD COUNT 11.2 X10'3 (4.5-11.0)
[2021-08-28 10:24] LABS: ALBUMIN 2.5 G/DL (3.4-5.0); ANION GAP 8 (8-16); BLOOD UREA NITROGEN 23 MG/DL (7-18); BUN/CREATININE RATIO 26.7 (5.4-32.0); CALCIUM 8.6 MG/DL (8.5-10.1); CHLORIDE 102 MMOL/L (99-107); CREATININE 0.86 MG/DL (0.60-1.10); GLUCOSE 92 MG/DL (70-104); POTASSIUM 4.9 MMOL/L (3.5-5.1); SODIUM 136 MMOL/L (135-145); TOTAL CARBON DIOXIDE 26.5 MMOL/L (24-32); eGFR 90 ML/MIN
[2021-08-28 11:09] LABS: PLATELET ESTIMATE INCREASED; TOTAL CELLS COUNTED 100
[2021-08-28 11:22] VITALS: BP 99/72
--- NOTE | 2021-08-28 15:29 | NUR ---
PAGER ID: [phone] MESSAGE: [phone] Mary Andrade: patient has still not gotten his midline placed. paged PICC RN multiple times. Can he have food? thanks, tyshawn [phone]
--- NOTE | 2021-08-28 15:33 | NUR ---
PICC NURSE PAGED EARLY THIS AM TO REQUEST CENTRAL LINE PLACEMENT ON THIS PT. PT SCHEDULE FOR A CTA AND HAS BEEN NPO SINCE MIDNIGHT. CALLED [facility] TO MAKE SURE WE DID HAVE A PICC TODAY, SHE STATED WE DID. PAGED PICC AGAIN. NO ANSWER OR CALL. CALLED [facility] AGAIN, SHE DIRECTED US TO IRMA FROST'S DIRECTOR TO FIND OUT WHERE PICC IS AT AND IF SHE IS COMING TO DO THE CENTRAL LINE. LEFT A VOICE MAIL FOR HIM. HOSPITALIST WAS PAGED AND INFORMED OF MISSED MEDS/ANTIBIOTICS AND CTA.
[2021-08-28 18:00] VITALS: BP 115/66
--- NOTE | 2021-08-28 18:27 | NUR ---
Problems reprioritized. Patient report given, questions answered & plan of care reviewed with PATTY Smiley.
[2021-08-28] MEDS: traZODone 50mg tablet PO SCH (20:50)
[2021-08-29] VITALS: BP 109/67
[2021-08-29] MEDS: clindamycin-Cleocin 900mg/D5W 50 ML IV SCH
[2021-08-29] MEDS: oxyCODONE/APAP 10/325mg tablet PO PRN ×4 (03:49→21:46)
[2021-08-29 06:24] LABS: BASOPHILS % (AUTO) 0.3 % (0-1); EOSINOPHILS # (AUTO) 0.4 X10'3 (0-0.9); LYMPHOCYTES # (AUTO) 2.2 X10'3 (1.1-4.8); MONOCYTES # (AUTO) 1.1 X10'3 (0-0.9); MONOCYTES % (AUTO) 11.3 % (2-12); NEUTROPHILS # (AUTO) 6.1 X10'3 (1.8-7.7)
[2021-08-29 06:25] LABS: EOSINOPHILS % (AUTO) 4.2 % (0-6); HEMATOCRIT 30.2 % (42.0-52.0); MEAN CORPUSCULAR HEMOGLOBIN 28.7 PG (27.0-31.0); MEAN CORPUSCULAR HGB CONC 33.2 g/dL (33.0-36.5); MEAN CORPUSCULAR VOLUME 86.4 FL (78-98); MEAN PLATELET VOLUME 6.8 FL (7.4-10.4); NEUTROPHILS % (AUTO) 62.2 % (42-75); PLATELET COUNT 585 X10'3 (140-440); RED BLOOD COUNT 3.49 X10'6 (4.70-6.10); RED CELL DISTRIBUTION WIDTH 13.9 % (11.5-14.5); WHITE BLOOD COUNT 9.9 X10'3 (4.5-11.0)
[2021-08-29 06:31] LABS: ALBUMIN 2.3 G/DL (3.4-5.0); ANION GAP 9 (8-16); BLOOD UREA NITROGEN 27 MG/DL (7-18); CALCIUM 8.2 MG/DL (8.5-10.1); CHLORIDE 102 MMOL/L (99-107); GLUCOSE 125 MG/DL (70-104); POTASSIUM 4.9 MMOL/L (3.5-5.1); SODIUM 138 MMOL/L (135-145); TOTAL CARBON DIOXIDE 27.3 MMOL/L (24-32); eGFR 86 ML/MIN
[2021-08-29 07:00] VITALS: BP 93/57
--- NOTE | 2021-08-29 07:57 | NUR ---
Page sent to PICC RN... [id number] Mary Andrade: patient needs midline as soon as possible. order has been in since 08/28. thanks! tyshawn [phone]
[2021-08-29] MEDS: K and/or MAG REPLACEMENT MC SCH ×2 (08:00→20:00)
[2021-08-29] MEDS: docusate sod 100mg capsule PO SCH ×2 (08:18→20:53)
[2021-08-29] MEDS: fluticasone nasal spray 16GM bottle NS SCH (08:18)
[2021-08-29] MEDS: enoxaparin 40mg/0.4ml syringe SUBCUT SCH (08:23)
[2021-08-29 09:41] LABS: PLATELET ESTIMATE INCREASED; TOTAL CELLS COUNTED 100
[2021-08-29] MEDS ORDERED: iohexol 350MG/ML 100ml bottle IV ONE (10:04)
--- NOTE | 2021-08-29 11:14 | NUR ---
Spoke with Dr. Mccartney. Advised him that patient has been without abx x3 days, hospitalist has been aware of this. Orders to continue with zosyn and keep clinda dc'd.
[2021-08-29] MEDS: piperacillin/tazo 3.375gm/50ml 50 ML IV SCH ×3 (11:36→15:02)
[2021-08-29 12:15] VITALS: BP 108/68
--- NOTE | 2021-08-29 12:15 | NUR ---
Patient in room OZ 357B. I have received report from NE student Deedee and had the opportunity to ask questions and assume patient care.
[2021-08-29 13:00] VITALS: BP 101/53
--- NOTE | 2021-08-29 13:52 | NUR ---
PAGER ID: [phone] MESSAGE: [phone] Mary Andrade: Imagining has resulted, would you like to resume diet? thank you! tyshawn [phone]
--- NOTE | 2021-08-29 14:09 | NUR ---
WOUND INFECTION EDUCATION PROVIDED BY WOUND CARE 1. Patient instructed to call their primary doctor, or go the ED immediately if any of the following symptoms occur: * Increased pain in wound * Increase in drainage from the wound * Redness in the skin surrounding the wound * Warmth in the skin surrounding the wound * Bleeding from the wound * Temperature of 101 or greater 2. If any of these occur while in the hospital tell a nurse immediately. PRESSURE ULCER EDUCATION: DEFINITION: A pressure ulcer is an area of skin that breaks down when you stay in one position too long. The constant pressure against the skin reduces the blood flow to that area and the affected tissue dies. CAUSES: "Being bedridden or in a wheelchair "Fragile skin "Having a chronic condition, such as diabetes or vascular disease "Inability to move certain parts of your body without assistance "Older age "Incontinence of urine or stool SYMPTOMS: "A reddened area that DOES NOT turn white when pressed on - this can be the beginning of a pressure ulcer "A blister, deep sore or a crater - these can be advanced pressure ulcers FIRST AID: "Relieve the pressure on this area "Keep the area clean and dry "Call your primary doctor if you see any of the above symptoms "DO NOT massage the area "DO NOT use a donut shaped or ring shaped pillow- these actually interfere with the blood flow and cause complications PREVENTION: "Check for pressure ulcers everyday "Change position at least every two hours to relieve pressure "Use items that help relieve pressure- pillows, sheepskin, foam padding, and powders. "Keep skin clean and dry "Eat healthy well balanced meals "Exercise daily IF YOU SEE ANY OF THESE SYMPTOMS WHILE IN THE HOSPITAL - TELL YOUR NURSE IMMEDIATELY. IF YOU SEE ANY OF THESE SYMPTOMS WHILE AT HOME OR HAVE ANY QUESTIONS OR CONCERNS ABOUT PRESSURE ULCERS - CALL YOUR PRIMARY DOCTOR IMMEDIATELY. Addendum: 08/29/21 at 1410 by Cristine Jaimes RN Amended: Links added.
--- NOTE | 2021-08-29 14:53 | NUR ---
PAGER ID: [phone] MESSAGE: [phone] Mary Andrade: patient wanting to know if he can resume his diet? thanks! [phone]
--- NOTE | 2021-08-29 15:01 | NUR ---
charting by Andreina TOLEDO reviewed by Nik Altamirano RN
--- NOTE | 2021-08-29 15:02 | NUR ---
Linked Med Note: Patient did not have IV access during the AM. 0800 dose of zosyn was administered late, pharmacist advised to hold the 1600 dose.
[2021-08-29 18:00] VITALS: BP 111/71
--- NOTE | 2021-08-29 18:14 | NUR ---
Problems reprioritized. Patient report given, questions answered & plan of care reviewed with PATTY John.
[2021-08-29] MEDS: traZODone 50mg tablet PO SCH (20:53)
[2021-08-30] VITALS: BP 103/55
[2021-08-30] MEDS: piperacillin/tazo 3.375gm/50ml 50 ML IV SCH ×3 (00:09→15:01)
[2021-08-30 06:21] LABS: ALBUMIN 2.4 G/DL (3.4-5.0); ANION GAP 10 (8-16); BASOPHILS % (AUTO) 0.3 % (0-1); BLOOD UREA NITROGEN 25 MG/DL (7-18); CALCIUM 8.1 MG/DL (8.5-10.1); CHLORIDE 104 MMOL/L (99-107); CREATININE 0.96 MG/DL (0.60-1.10); EOSINOPHILS # (AUTO) 0.3 X10'3 (0-0.9); EOSINOPHILS % (AUTO) 3.6 % (0-6); GLUCOSE 100 MG/DL (70-104); HEMATOCRIT 30.9 % (42.0-52.0); HEMOGLOBIN 10.4 g/dl (14.0-17.9); LYMPHOCYTES % (AUTO) 11.5 % (21-51); MEAN CORPUSCULAR HGB CONC 33.6 g/dL (33.0-36.5); MEAN CORPUSCULAR VOLUME 86.5 FL (78-98); MEAN PLATELET VOLUME 6.8 FL (7.4-10.4); MONOCYTES # (AUTO) 0.9 X10'3 (0-0.9); MONOCYTES % (AUTO) 9.6 % (2-12); NEUTROPHILS # (AUTO) 6.9 X10'3 (1.8-7.7); PLATELET COUNT 569 X10'3 (140-440); POTASSIUM 4.9 MMOL/L (3.5-5.1); RED BLOOD COUNT 3.57 X10'6 (4.70-6.10); RED CELL DISTRIBUTION WIDTH 13.8 % (11.5-14.5); SODIUM 140 MMOL/L (135-145); TOTAL CARBON DIOXIDE 26.1 MMOL/L (24-32); WHITE BLOOD COUNT 9.1 X10'3 (4.5-11.0); eGFR 80 ML/MIN
[2021-08-30 07:00] VITALS: BP 107/55
[2021-08-30] MEDS: fluticasone nasal spray 16GM bottle NS SCH (07:55)
[2021-08-30] MEDS: docusate sod 100mg capsule PO SCH ×2 (07:56→20:14)
[2021-08-30] MEDS: enoxaparin 40mg/0.4ml syringe SUBCUT SCH (07:56)
[2021-08-30] MEDS: K and/or MAG REPLACEMENT MC SCH ×2 (07:57→20:00)
[2021-08-30] MEDS: oxyCODONE/APAP 10/325mg tablet PO PRN ×3 (07:59→20:13)
--- NOTE | 2021-08-30 11:48 | NUR ---
Reassessment: Pt currently on regular diet and continues to eat well documented w/ 100% of meals while receiving double protein. Pt may benefit from Lui Smoothies BID to assist w/ wound healing, to be sent pending physician approval in EMR. Pt LBM 08/25, noted to have constipation 08/29 and receiving routine and PRN bowel care per EMR. Recommend prunes to be sent w/ next meal to assist w/ bowel regularity, d/w dietary. Will continue to monitor for additional nutrition intervention. Recs: 1. Continue regular diet 2. Lui smoothies BID pending physician approval in EMR; double protein w/ meals 3. Routine bowel care 4. Scaled wt this admit, weekly scaled wts thereafter Addendum: 08/30/21 at 1148 by Bonita Malin - Nurse Transitional RD Amended: Links added.
--- NOTE | 2021-08-30 11:50 | NUR ---
Reassessment: Pt currently on regular diet and continues to eat well documented w/ 100% of meals while receiving double protein. Pt may benefit from Lui Smoothies BIDLD to assist w/ wound healing, to be sent pending physician approval in EMR. Pt LBM 08/25, noted to have constipation 08/29 and receiving routine and PRN bowel care per EMR. Recommend prunes to be sent w/ next meal to assist w/ bowel regularity, d/w dietary. Will continue to monitor for additional nutrition intervention. Recs: 1. Continue regular diet 2. Lui smoothies BIDLD pending physician approval in EMR; double protein w/ meals 3. Routine bowel care 4. Scaled wt this admit, weekly scaled wts thereafter Addendum: 08/30/21 at [address] Amended: Links added. Addendum: 08/30/21 at [address] I have reviewed and agree with note by Manager Human Resources. CARLOZ Turner
[2021-08-30] MEDS: JUVEN Smoothie Arginine/Glut./Ca2+Bmb (Juven 19.3pkt) 240ml cup PO SCH ×2 (12:30→17:30)
[2021-08-30 12:35] VITALS: BP 108/62
[2021-08-30 18:00] VITALS: BP 123/70
--- NOTE | 2021-08-30 18:16 | NUR ---
Gave report to Guerrero BRAMBILA.
[2021-08-30] MEDS: traZODone 50mg tablet PO SCH (20:13)
[2021-08-31] VITALS: BP 129/50
[2021-08-31] MEDS: piperacillin/tazo 3.375gm/50ml 50 ML IV SCH ×3 (00:27→16:21)
--- NOTE | 2021-08-31 06:30 | NUR ---
Patient in room OZ 357. I have received report from Guerrero BRAMBILA and had the opportunity to ask questions and assume patient care.
[2021-08-31 06:39] LABS: BASOPHILS % (AUTO) 0.6 % (0-1); EOSINOPHILS # (AUTO) 0.3 X10'3 (0-0.9); EOSINOPHILS % (AUTO) 3.6 % (0-6); HEMOGLOBIN 9.7 g/dl (14.0-17.9); LYMPHOCYTES # (AUTO) 1.4 X10'3 (1.1-4.8); LYMPHOCYTES % (AUTO) 16.7 % (21-51); MEAN CORPUSCULAR HEMOGLOBIN 29.2 PG (27.0-31.0); MEAN CORPUSCULAR HGB CONC 33.4 g/dL (33.0-36.5); MEAN CORPUSCULAR VOLUME 87.5 FL (78-98); MEAN PLATELET VOLUME 6.9 FL (7.4-10.4); MONOCYTES # (AUTO) 1.1 X10'3 (0-0.9); MONOCYTES % (AUTO) 13.3 % (2-12); NEUTROPHILS # (AUTO) 5.5 X10'3 (1.8-7.7); NEUTROPHILS % (AUTO) 65.8 % (42-75); PLATELET COUNT 543 X10'3 (140-440); RED BLOOD COUNT 3.31 X10'6 (4.70-6.10); RED CELL DISTRIBUTION WIDTH 13.8 % (11.5-14.5); WHITE BLOOD COUNT 8.3 X10'3 (4.5-11.0)
[2021-08-31 06:58] LABS: ALBUMIN 2.5 G/DL (3.4-5.0); ANION GAP 10 (8-16); BLOOD UREA NITROGEN 28 MG/DL (7-18); CHLORIDE 105 MMOL/L (99-107); GLUCOSE 95 MG/DL (70-104); POTASSIUM 5.1 MMOL/L (3.5-5.1); SODIUM 142 MMOL/L (135-145); TOTAL CARBON DIOXIDE 26.6 MMOL/L (24-32); eGFR 76 ML/MIN
[2021-08-31] MEDS: oxyCODONE/APAP 10/325mg tablet PO PRN ×3 (07:03→17:13)
[2021-08-31] MEDS: docusate sod 100mg capsule PO SCH ×2 (07:04→20:43)
[2021-08-31] MEDS: enoxaparin 40mg/0.4ml syringe SUBCUT SCH (07:05)
[2021-08-31 07:10] LABS: PLATELET ESTIMATE INCREASED; TOTAL CELLS COUNTED 100
[2021-08-31 07:45] VITALS: BP 112/68
[2021-08-31] MEDS: K and/or MAG REPLACEMENT MC SCH ×2 (08:00→20:00)
[2021-08-31] MEDS: fluticasone nasal spray 16GM bottle NS SCH (08:30)
[2021-08-31] MEDS ORDERED: normal saline 500ml IV soln 500 ML IV PRN (09:45)
[2021-08-31 11:00] VITALS: BP 121/76
[2021-08-31] MEDS: JUVEN Smoothie Arginine/Glut./Ca2+Bmb (Juven 19.3pkt) 240ml cup PO SCH ×2 (12:30→15:46)
--- NOTE | 2021-08-31 15:35 | NUR ---
Student documentation: I have reviewed all interventions, assessments performed and documented by Virginia KOCH of [facility] . Student Medication Administration: For all medication-pass' in the time frame of 0280-6136, all medications were reviewed, dispensed, administered and documented per hospital policy by Virginia KOCH of [facility] .
--- NOTE | 2021-08-31 18:15 | NUR ---
Problems reprioritized. Patient report given, questions answered & plan of care reviewed.
[2021-08-31 19:00] VITALS: BP 118/77
[2021-08-31] MEDS: traZODone 50mg tablet PO SCH (20:43)
[2021-09-01] MEDS: oxyCODONE/APAP 10/325mg tablet PO PRN ×5 (02:19→20:44)
--- NOTE | 2021-09-01 06:34 | NUR ---
Patient in room OZ 357. I have received report and had the opportunity to ask questions and assume patient care.
[2021-09-01 06:56] LABS: BASOPHILS % (AUTO) 0.4 % (0-1); EOSINOPHILS # (AUTO) 0.2 X10'3 (0-0.9); EOSINOPHILS % (AUTO) 2.8 % (0-6); HEMATOCRIT 28.4 % (42.0-52.0); HEMOGLOBIN 9.7 g/dl (14.0-17.9); LYMPHOCYTES % (AUTO) 12.6 % (21-51); MEAN CORPUSCULAR HEMOGLOBIN 29.5 PG (27.0-31.0); MEAN CORPUSCULAR VOLUME 86.9 FL (78-98); MEAN PLATELET VOLUME 6.8 FL (7.4-10.4); MONOCYTES # (AUTO) 0.9 X10'3 (0-0.9); MONOCYTES % (AUTO) 11.7 % (2-12); NEUTROPHILS # (AUTO) 5.8 X10'3 (1.8-7.7); NEUTROPHILS % (AUTO) 72.5 % (42-75); PLATELET COUNT 528 X10'3 (140-440); RED BLOOD COUNT 3.27 X10'6 (4.70-6.10); RED CELL DISTRIBUTION WIDTH 13.8 % (11.5-14.5)
[2021-09-01] MEDS: docusate sod 100mg capsule PO SCH ×2 (07:27→19:40)
[2021-09-01] MEDS: fluticasone nasal spray 16GM bottle NS SCH (07:27)
[2021-09-01] MEDS: enoxaparin 40mg/0.4ml syringe SUBCUT SCH (07:28)
[2021-09-01] MEDS: piperacillin/tazo 3.375gm/50ml 50 ML IV SCH ×4 (07:28→23:30)
[2021-09-01 07:57] LABS: ALBUMIN 2.5 G/DL (3.4-5.0); ANION GAP 9 (8-16); BLOOD UREA NITROGEN 26 MG/DL (7-18); CALCIUM 8.1 MG/DL (8.5-10.1); CHLORIDE 105 MMOL/L (99-107); CREATININE 0.93 MG/DL (0.60-1.10); GLUCOSE 105 MG/DL (70-104); POTASSIUM 4.6 MMOL/L (3.5-5.1); SODIUM 139 MMOL/L (135-145); eGFR 83 ML/MIN
[2021-09-01] MEDS: K and/or MAG REPLACEMENT MC SCH ×2 (08:00→19:42)
[2021-09-01] MEDS: JUVEN Smoothie Arginine/Glut./Ca2+Bmb (Juven 19.3pkt) 240ml cup PO SCH ×2 (12:30→17:30)
--- NOTE | 2021-09-01 14:11 | NUR ---
Student documentation: I have reviewed all interventions, assessments performed and documented by Lauren KOCH. Student Medication Administration: For all medication-pass' in the time frame of 7817-6971, all medications were reviewed, dispensed, administered and documented per hospital policy by Laruen KOCH.
--- NOTE | 2021-09-01 16:30 | NUR ---
Wound care provided to the patient's LLE. wound was dressed with normal saline, Xeroform to the skin tear applied, gauze applied to the LLE with additional JAYLAN wrap. Patient tolerated well. Percocet provided prior to wound care. Patient denies any questions/concerns regarding wound care dressing change.
--- NOTE | 2021-09-01 18:11 | NUR ---
Problems reprioritized. Patient report given, questions answered & plan of care reviewed with ARLEEN BRAMBILA.
[2021-09-01] MEDS: traZODone 50mg tablet PO SCH (19:40)
[2021-09-01 20:00] VITALS: BP 103/75
[2021-09-02] VITALS: BP 107/74
[2021-09-02] MEDS: oxyCODONE/APAP 10/325mg tablet PO PRN ×4 (04:56→20:44)
[2021-09-02 06:39] LABS: BASOPHILS # (AUTO) 0.1 X10'3 (0-0.2); BASOPHILS % (AUTO) 0.8 % (0-1); EOSINOPHILS # (AUTO) 0.2 X10'3 (0-0.9); EOSINOPHILS % (AUTO) 3.2 % (0-6); HEMATOCRIT 29.1 % (42.0-52.0); HEMOGLOBIN 9.9 g/dl (14.0-17.9); LYMPHOCYTES # (AUTO) 0.9 X10'3 (1.1-4.8); LYMPHOCYTES % (AUTO) 12.3 % (21-51); MEAN CORPUSCULAR HEMOGLOBIN 29.3 PG (27.0-31.0); MEAN CORPUSCULAR HGB CONC 33.9 g/dL (33.0-36.5); MEAN CORPUSCULAR VOLUME 86.6 FL (78-98); MEAN PLATELET VOLUME 6.8 FL (7.4-10.4); MONOCYTES % (AUTO) 13.3 % (2-12); NEUTROPHILS # (AUTO) 5.1 X10'3 (1.8-7.7); NEUTROPHILS % (AUTO) 70.4 % (42-75); PLATELET COUNT 522 X10'3 (140-440); RED BLOOD COUNT 3.36 X10'6 (4.70-6.10); RED CELL DISTRIBUTION WIDTH 14.1 % (11.5-14.5); WHITE BLOOD COUNT 7.3 X10'3 (4.5-11.0)
[2021-09-02 06:42] LABS: ALBUMIN 2.6 G/DL (3.4-5.0); ANION GAP 8 (8-16); BLOOD UREA NITROGEN 28 MG/DL (7-18); BUN/CREATININE RATIO 29.2 (5.4-32.0); CHLORIDE 104 MMOL/L (99-107); CREATININE 0.96 MG/DL (0.60-1.10); GLUCOSE 94 MG/DL (70-104); POTASSIUM 4.7 MMOL/L (3.5-5.1); SODIUM 139 MMOL/L (135-145); TOTAL CARBON DIOXIDE 27.5 MMOL/L (24-32); eGFR 80 ML/MIN
[2021-09-02 07:00] VITALS: BP 109/74
[2021-09-02] MEDS: docusate sod 100mg capsule PO SCH ×2 (07:52→20:44)
[2021-09-02] MEDS: enoxaparin 40mg/0.4ml syringe SUBCUT SCH (07:53)
[2021-09-02] MEDS: piperacillin/tazo 3.375gm/50ml 50 ML IV SCH (07:55)
[2021-09-02] MEDS: fluticasone nasal spray 16GM bottle NS SCH (07:56)
[2021-09-02] MEDS: K and/or MAG REPLACEMENT MC SCH ×2 (08:00→20:00)
[2021-09-02 11:00] VITALS: BP 123/64
[2021-09-02] MEDS: JUVEN Smoothie Arginine/Glut./Ca2+Bmb (Juven 19.3pkt) 240ml cup PO SCH ×2 (12:30→18:42)
--- NOTE | 2021-09-02 15:30 | NUR ---
New TV do to not working
[2021-09-02] MEDS: amox tr/potassium clavulanate 875/125mg TAB PO SCH (16:44)
--- NOTE | 2021-09-02 18:05 | NUR ---
Patient in room OZ 357B. I have received report from PATTY Clark and had the opportunity to ask questions and assume patient care.
--- NOTE | 2021-09-02 18:07 | NUR ---
Problems reprioritized. Patient report given, questions answered & plan of care reviewed with Lotus BRAMBILA.
[2021-09-02 20:00] VITALS: BP 118/73
[2021-09-02] MEDS: traZODone 50mg tablet PO SCH (20:44)
[2021-09-03] VITALS (10 sets, daily range): BP systolic 93–132; BP diastolic 53–83
[2021-09-03] MEDS: oxyCODONE/APAP 10/325mg tablet PO PRN ×3 (05:50→16:57)
--- NOTE | 2021-09-03 06:24 | NUR ---
Problems reprioritized. Patient report given, questions answered & plan of care reviewed with PATTY Colunga.
[2021-09-03] MEDS: enoxaparin 40mg/0.4ml syringe SUBCUT SCH (06:43)
[2021-09-03 06:55] LABS: ALBUMIN 2.6 G/DL (3.4-5.0); ANION GAP 9 (8-16); BASOPHILS % (AUTO) 0.6 % (0-1); BLOOD UREA NITROGEN 32 MG/DL (7-18); BUN/CREATININE RATIO 31.4 (5.4-32.0); CALCIUM 8.2 MG/DL (8.5-10.1); CHLORIDE 105 MMOL/L (99-107); CREATININE 1.02 MG/DL (0.60-1.10); EOSINOPHILS # (AUTO) 0.2 X10'3 (0-0.9); EOSINOPHILS % (AUTO) 2.9 % (0-6); GLUCOSE 97 MG/DL (70-104); HEMATOCRIT 28.7 % (42.0-52.0); HEMOGLOBIN 9.7 g/dl (14.0-17.9); LYMPHOCYTES # (AUTO) 1.4 X10'3 (1.1-4.8); LYMPHOCYTES % (AUTO) 20.7 % (21-51); MEAN CORPUSCULAR HEMOGLOBIN 29.3 PG (27.0-31.0); MEAN CORPUSCULAR HGB CONC 33.7 g/dL (33.0-36.5); MEAN PLATELET VOLUME 6.7 FL (7.4-10.4); MONOCYTES # (AUTO) 1.1 X10'3 (0-0.9); MONOCYTES % (AUTO) 16.5 % (2-12); NEUTROPHILS # (AUTO) 4.1 X10'3 (1.8-7.7); NEUTROPHILS % (AUTO) 59.3 % (42-75); PLATELET COUNT 513 X10'3 (140-440); POTASSIUM 4.8 MMOL/L (3.5-5.1); RED CELL DISTRIBUTION WIDTH 13.9 % (11.5-14.5); SODIUM 141 MMOL/L (135-145); TOTAL CARBON DIOXIDE 27.4 MMOL/L (24-32); WHITE BLOOD COUNT 6.9 X10'3 (4.5-11.0); eGFR 74 ML/MIN
[2021-09-03] MEDS: amox tr/potassium clavulanate 875/125mg TAB PO SCH ×2 (07:38→16:54)
[2021-09-03] MEDS: docusate sod 100mg capsule PO SCH ×2 (07:38→19:47)
[2021-09-03] MEDS: fluticasone nasal spray 16GM bottle NS SCH (07:39)
[2021-09-03] MEDS: K and/or MAG REPLACEMENT MC SCH ×2 (07:39→20:00)
--- NOTE | 2021-09-03 08:20 | NUR ---
Paged PICC RN
[2021-09-03 10:42] LABS: LARGE PLATELETS FEW; PLATELET ESTIMATE INCREASED; TOTAL CELLS COUNTED 100
[2021-09-03] MEDS ORDERED: baclofen 10mg tablet PO ONE (11:45)
[2021-09-03] MEDS: JUVEN Smoothie Arginine/Glut./Ca2+Bmb (Juven 19.3pkt) 240ml cup PO SCH ×3 (12:30→17:41)
--- NOTE | 2021-09-03 14:35 | NUR ---
patient in wheelchair waiting for Angio to pick him up.
--- NOTE | 2021-09-03 14:49 | NUR ---
WOUND INFECTION EDUCATION PROVIDED BY WOUND CARE 1. Patient instructed to call their primary doctor, or go the ED immediately if any of the following symptoms occur: * Increased pain in wound * Increase in drainage from the wound * Redness in the skin surrounding the wound * Warmth in the skin surrounding the wound * Bleeding from the wound * Temperature of 101 or greater 2. If any of these occur while in the hospital tell a nurse immediately. Addendum: 09/03/21 at 1449 by Cristine Jaimes RN Amended: Links added.
[2021-09-03] MEDS ORDERED: fentaNYL/PF 50MCG/1 ML 2ML syringe ONE (15:05)
[2021-09-03] MEDS: sodium chloride 0.45% 1,000 ML IV SCH (16:57)
--- NOTE | 2021-09-03 18:07 | NUR ---
Problems reprioritized. Patient report given, questions answered & plan of care reviewed with PATTY Guidry.
--- NOTE | 2021-09-03 19:07 | NUR ---
Patient in room OZ 357. I have received report from PATTY Daniels and had the opportunity to ask questions and assume patient care.
[2021-09-03] MEDS: traZODone 50mg tablet PO SCH (19:51)
[2021-09-04] MEDS: oxyCODONE/APAP 10/325mg tablet PO PRN ×6 (00:07→22:02)
[2021-09-04 00:18] VITALS: BP 98/56
[2021-09-04] MEDS: sodium chloride 0.45% 1,000 ML IV SCH ×3 (01:40→20:25)
--- NOTE | 2021-09-04 06:19 | NUR ---
Problems reprioritized. Patient report given, questions answered & plan of care reviewed with PATTY Colunga.
[2021-09-04 07:05] VITALS: BP 97/62
[2021-09-04] MEDS: fluticasone nasal spray 16GM bottle NS SCH (08:00)
[2021-09-04] MEDS: K and/or MAG REPLACEMENT MC SCH ×2 (08:00→20:00)
[2021-09-04] MEDS: amox tr/potassium clavulanate 875/125mg TAB PO SCH ×2 (08:13→17:21)
[2021-09-04] MEDS: docusate sod 100mg capsule PO SCH ×2 (08:14→21:37)
[2021-09-04] MEDS: enoxaparin 40mg/0.4ml syringe SUBCUT SCH (08:16)
--- NOTE | 2021-09-04 09:38 | NUR ---
Spoke with Dr. Mccartney, he said the wenceslao come out 2 weeks after surgery date.
--- NOTE | 2021-09-04 10:06 | NUR ---
Reassessment: Pt currently on regular diet and continues to eat well documented w/ 100% of meals while receiving double protein TID, as well as 100% of Lui smoothies meeting est nutrient needs. Sepsis has been resolved per MD note. LBM 09/03 receiving routine colace. No change to recommendations at this time, will continue to monitor. Recs: 1. Continue regular diet 2. Double Protein BIDBD 3. Lui smoothies BIDLD 4. Routine bowel care 5. Scaled wt this admit, weekly scaled wts thereafter Addendum: 09/04/21 at [address] Amended: Links added.
[2021-09-04 12:00] VITALS: BP 120/75
[2021-09-04] MEDS: JUVEN Smoothie Arginine/Glut./Ca2+Bmb (Juven 19.3pkt) 240ml cup PO SCH ×3 (12:38→18:02)
[2021-09-04 18:00] VITALS: BP 116/59
--- NOTE | 2021-09-04 18:19 | NUR ---
Problems reprioritized. Patient report given, questions answered & plan of care reviewed with PATTY Leach.
--- NOTE | 2021-09-04 19:00 | NUR ---
Patient in room OZ 357. I have received report from Cristine BRAMBILA and had the opportunity to ask questions and assume patient care.
[2021-09-04 21:05] VITALS: BP 116/59
[2021-09-04] MEDS: traZODone 50mg tablet PO SCH (21:37)
[2021-09-05 00:24] VITALS: BP 99/51
[2021-09-05] MEDS: oxyCODONE/APAP 10/325mg tablet PO PRN ×3 (04:03→12:49)
--- NOTE | 2021-09-05 06:29 | NUR ---
Report given to Betty BRAMBILA
--- NOTE | 2021-09-05 06:30 | NUR ---
Patient in room OZ 357. I have received report from PATTY Guidry and had the opportunity to ask questions and assume patient care.
--- NOTE | 2021-09-05 06:30 | NUR ---
Report given to PATTY Hernández Addendum: 09/05/21 at 0631 by Chao Sood RN I agree with Travel nurse Beth avelar, and report given to Betty
[2021-09-05 07:00] VITALS: BP 114/63
[2021-09-05] MEDS: sodium chloride 0.45% 1,000 ML IV SCH (07:40)
[2021-09-05] MEDS: K and/or MAG REPLACEMENT MC SCH (08:00)
[2021-09-05] MEDS: amox tr/potassium clavulanate 875/125mg TAB PO SCH (08:07)
[2021-09-05] MEDS: docusate sod 100mg capsule PO SCH (08:08)
[2021-09-05] MEDS: fluticasone nasal spray 16GM bottle NS SCH (08:09)
[2021-09-05] MEDS: enoxaparin 40mg/0.4ml syringe SUBCUT SCH (08:09)
[2021-09-05] MEDS ORDERED: AMOX-580 PO (09:19)
[2021-09-05 11:00] VITALS: BP 111/67
[2021-09-05] MEDS: JUVEN Smoothie Arginine/Glut./Ca2+Bmb (Juven 19.3pkt) 240ml cup PO SCH (12:35)
--- NOTE | 2021-09-05 12:55 | NUR ---
WOUND INFECTION EDUCATION PROVIDED BY WOUND CARE 1. Patient instructed to call their primary doctor, or go the ED immediately if any of the following symptoms occur: * Increased pain in wound * Increase in drainage from the wound * Redness in the skin surrounding the wound * Warmth in the skin surrounding the wound * Bleeding from the wound * Temperature of 101 or greater 2. If any of these occur while in the hospital tell a nurse immediately. Addendum: 09/05/21 at 1255 by Cristine Jaimes RN Amended: Links added.
--- NOTE | 2021-09-05 13:00 | NUR ---
Removed 41 wenceslao from left leg. Pt tolerated well.
== END 2021-09-05 13:50 | disposition home or self-care (01) | DRG 853 ==
LOC: ER 12:25 → ED HOLD 15:49 → PCU 3S 19:58 → SUR 3N 08-26 16:18
PROVIDERS: ADMIT Family Medicine; ATTEND Family Medicine
PROC: 0JDP0ZZ Extraction of Left Lower Leg Subcutaneous Tissue and Fascia, Open Approach (ICD-10-PCS; principal; 2021-08-22 17:58)
PROC: 0J9P0ZZ Drainage of Left Lower Leg Subcutaneous Tissue and Fascia, Open Approach (ICD-10-PCS; 2021-08-24)
PROC: 0KBT0ZZ Excision of Left Lower Leg Muscle, Open Approach (ICD-10-PCS; 2021-08-24)
PROC: BQ2S1ZZ Computerized Tomography (CT Scan) of Left Lower Extremity using Low Osmolar Contrast (ICD-10-PCS; 2021-08-29)
PROC: B32T1ZZ Computerized Tomography (CT Scan) of Left Pulmonary Artery using Low Osmolar Contrast (ICD-10-PCS; 2021-08-29)
PROC: B3201ZZ Computerized Tomography (CT Scan) of Thoracic Aorta using Low Osmolar Contrast (ICD-10-PCS; 2021-08-29)
PROC: B32S1ZZ Computerized Tomography (CT Scan) of Right Pulmonary Artery using Low Osmolar Contrast (ICD-10-PCS; 2021-08-29)
PROC: BW211ZZ Computerized Tomography (CT Scan) of Abdomen and Pelvis using Low Osmolar Contrast (ICD-10-PCS; 2021-08-29)
PROC: 0BBP3ZX Excision of Left Pleura, Percutaneous Approach, Diagnostic (ICD-10-PCS; 2021-09-03)
DX: A41.9 Sepsis, unspecified organism (principal); M72.6 Necrotizing fasciitis; L03.116 Cellulitis of left lower limb; E78.00 Pure hypercholesterolemia, unspecified; Z90.5 Acquired absence of kidney; F17.210 Nicotine dependence, cigarettes, uncomplicated; F15.10 Other stimulant abuse, uncomplicated; E78.5 Hyperlipidemia, unspecified; R91.1 Solitary pulmonary nodule; Z20.822 Contact with and (suspected) exposure to COVID-19; M79.89 Other specified soft tissue disorders; D75.839 Thrombocytosis, unspecified; R07.9 Chest pain, unspecified; R10.12 Left upper quadrant pain; D64.9 Anemia, unspecified; J44.9 Chronic obstructive pulmonary disease, unspecified; I10 Essential (primary) hypertension; E11.9 Type 2 diabetes mellitus without complications; Z88.2 Allergy status to sulfonamides; Z79.899 Other long term (current) drug therapy; Z87.440 Personal history of urinary (tract) infections; Z56.0 Unemployment, unspecified; Z71.6 Tobacco abuse counseling
CPT/HCPCS: 32408; 36000; 36415; 71045; 71275; 73701; 74177; 76700; 76937; 77012; 80048; 80053; 80202; 80305; 81001; 82948; 83605; 83735; 84145; 85007; 85025; 85610; 85730; 86140; 87040; 87070; 87075; 87081; 87635; 93005; 93971; 97110; 97116; 97161; 97530; 99152; 99153; 99291; A4618; A6223; A6446; A6449; A6550; A7000; C9803; G0378; J1100; J1650; J2175; J2250; J2270; J2405; J2543; J2704; J3010; J3370; J3490; J7030; J7040; J7060; J7120; P9045; Q9967

== ENCOUNTER 2021-10-11 13:35 | Emergency (ER) | payer MEDICARE, OTHER ==
[~2021-10-11] VITALS: Ht 180.3 cm; Wt 78.8 kg
[~2021-10-11 13:35] MED LIST changes: +AMOX-580 PO; -FAMO10TA41 PO; -LANS30CA56 PO; +LISI10TA27 PO; -LISI20TA28 PO
[2021-10-11] MEDS ORDERED: DOXYCYCLINE 100MG CAPSULE PO STA (14:27)
[2021-10-11] MEDS ORDERED: ondansetron 4mg rapidly disintigrating tab PO ONE (14:30)
[2021-10-11] MEDS ORDERED: cephalexin 250mg capsule PO ONE (14:30)
[2021-10-11] MEDS ORDERED: ceFAZolin 1gm IM kit IM ONE (14:30)
--- NOTE | 2021-10-11 14:49 | NUR ---
IM shot caused discomfort. Ice pack provided for pt comfort. Vascular at bedside.
[2021-10-11] MEDS ORDERED: DOXY100C77 PO (15:27)
[2021-10-11] MEDS ORDERED: CEPH250T PO (15:27)
--- NOTE | 2021-10-11 15:45 | NUR ---
Pt's wounds cleaned, redressed and bandaged. Wound cleaning supplies sent with pt to assist with cleansing until he is able to purchase some more of his own.
[2021-10-11 16:02] VITALS: BP 147/93
== END 2021-10-11 16:03 | disposition home or self-care (01) ==
LOC: ER 13:35
DX: L03.116 Cellulitis of left lower limb (principal); L97.929 Non-pressure chronic ulcer of unspecified part of left lower leg with unspecified severity; E78.00 Pure hypercholesterolemia, unspecified; I10 Essential (primary) hypertension; J44.9 Chronic obstructive pulmonary disease, unspecified; Z87.440 Personal history of urinary (tract) infections; Z90.5 Acquired absence of kidney; Z56.0 Unemployment, unspecified; Z88.2 Allergy status to sulfonamides; Z88.8 Allergy status to other drugs, medicaments and biological substances; Z79.2 Long term (current) use of antibiotics; Z79.899 Other long term (current) drug therapy; Z87.19 Personal history of other diseases of the digestive system
CPT/HCPCS: 93971; 96372; 99284; J0690

== ENCOUNTER 2022-03-06 12:04 | Inpatient (IN) | payer MEDICARE ==
[~2022-03-06] VITALS: Ht 177.8 cm; Wt 81.8 kg
[~2022-03-06 12:04] MED LIST changes: +AMOX-117 PO; -AMOX-580 PO; +FAMO20TA8 PO; -FLUT16SP26 NAS; +FLUT16SP26 NS; +LANS30CA56 PO; +TRAM50TA2 PO
[2022-03-06] MEDS ORDERED: ketorolac trometh. 30mg/ml inj. IV ONE (13:45)
--- NOTE | 2022-03-06 14:07 | NUR ---
PT TO CT
--- NOTE | 2022-03-06 14:15 | NUR ---
PT RETURN FROM CT
[2022-03-06] MEDS ORDERED: morphine 4 MG/ML inj SYRINge IV ONE ×3 (14:35→17:20)
[2022-03-06] MEDS ORDERED: ondansetron/PF 4mg/2ml inj IV ONE ×3 (15:20→17:20)
[2022-03-06] MEDS ORDERED: magnesium 4gm in 100ml NS 100 ML IV PRN (17:45)
[2022-03-06] MEDS ORDERED: acetaminophen 325mg tablet PO PRN ×2 (17:45)
[2022-03-06] MEDS ORDERED: potassium CL 10mEq/100ml bag 100 ML IV PRN (17:45)
[2022-03-06] MEDS ORDERED: ondansetron/PF 4mg/2ml inj IV PRN (17:45)
[2022-03-06] MEDS ORDERED: HYDROcodone/acetaminophen 5mg/325mg tablet PO PRN (17:45)
[2022-03-06] MEDS ORDERED: magnesium hydroxide 30ml (MOM) UD suspension PO PRN (17:45)
[2022-03-06] MEDS ORDERED: mag hydrox/Alum hydrox/simeth 30ml oral suspension PO PRN (17:45)
[2022-03-06] MEDS ORDERED: magnesium 2GM in 50ml NS 50 ML IV PRN (17:45)
[2022-03-06] MEDS ORDERED: magnesium Cl slow-release 64mg tablet PO PRN (17:45)
[2022-03-06] MEDS ORDERED: POTASSIUM BICARB 20meq eff tab 20 MEQ TABLET.EFF PO PRN ×2 (17:45)
[2022-03-06] MEDS: normal saline 1000ml 1,000 ML IV SCH ×2 (18:19→21:22)
[2022-03-06 18:21] LABS: BASOPHILS % (AUTO) 0.3 % (0-1); EOSINOPHILS # (AUTO) 0.1 X10'3 (0-0.9); EOSINOPHILS % (AUTO) 1.2 % (0-6); HEMATOCRIT 41.5 % (42.0-52.0); HEMOGLOBIN 13.5 g/dl (14.0-17.9); LYMPHOCYTES % (AUTO) 18.3 % (21-51); MEAN CORPUSCULAR HEMOGLOBIN 27.9 PG (27.0-31.0); MEAN CORPUSCULAR HGB CONC 32.6 g/dL (33.0-36.5); MEAN CORPUSCULAR VOLUME 85.5 FL (78-98); MEAN PLATELET VOLUME 6.5 FL (7.4-10.4); MONOCYTES # (AUTO) 1.2 X10'3 (0-0.9); NEUTROPHILS # (AUTO) 7.7 X10'3 (1.8-7.7); NEUTROPHILS % (AUTO) 69.2 % (42-75); PLATELET COUNT 551 X10'3 (140-440); RED BLOOD COUNT 4.85 X10'6 (4.70-6.10); RED CELL DISTRIBUTION WIDTH 15.5 % (11.5-14.5); WHITE BLOOD COUNT 11.1 X10'3 (4.5-11.0)
[2022-03-06 18:37] LABS: ALANINE AMINOTRANSFERASE 93 U/L (12-78); ALBUMIN 3.5 G/DL (3.4-5.0); ALBUMIN/GLOBULIN RATIO 0.8 (1.1-1.5); ALKALINE PHOSPHATASE 147 IU/L (46-116); ANION GAP 9 (8-16); ASPARTATE AMINO TRANSFERASE 122 U/L (10-37); BILIRUBIN,TOTAL 0.3 MG/DL (0.1-1.0); BLOOD UREA NITROGEN 39 MG/DL (7-18); BUN/CREATININE RATIO 37.9 (5.4-32.0); CALCIUM 9.1 MG/DL (8.5-10.1); CHLORIDE 103 MMOL/L (99-107); CREATININE 1.03 MG/DL (0.60-1.10); GLUCOSE 90 MG/DL (70-104); MAGNESIUM 2.3 MG/DL (1.5-2.4); POTASSIUM 4.5 MMOL/L (3.5-5.1); SODIUM 137 MMOL/L (135-145); TOTAL CARBON DIOXIDE 25.2 MMOL/L (24-32); eGFR 73 ML/MIN
[2022-03-06] MEDS: K and/or MAG REPLACEMENT MC SCH (20:00)
[2022-03-06] MEDS: docusate sod 100mg capsule PO SCH (20:07)
[2022-03-06] MEDS: HYDROcodone/acetaminophen 10/325mg tab PO PRN (20:22)
--- NOTE | 2022-03-06 21:10 | NUR ---
Received report from Kaitlynn BRAMBILA from ED. Patient came up via gurney. Bed placed in locked & low position, call light within reach.
[2022-03-06 21:11] VITALS: BP 130/76
[2022-03-06] MEDS ORDERED: albuterol 2.5 MG/3 ML nebule NEB PRN (21:15)
[2022-03-06] MEDS ORDERED: AMOX-117 PO (23:26)
[2022-03-07] MEDS: HYDROcodone/acetaminophen 10/325mg tab PO PRN ×5 (00:06→22:02)
[2022-03-07] MEDS: HYDROmorphone inj. 0.5 MG/0.5 ML DISP.SYRIN IV PRN ×4 (01:35→19:14)
[2022-03-07 06:00] VITALS: BP 128/72
--- NOTE | 2022-03-07 06:40 | NUR ---
Patient in room ORTHO 4024. I have received report from [facility] and had the opportunity to ask questions and assume patient care.
--- NOTE | 2022-03-07 06:42 | NUR ---
Problems reprioritized. Patient report given, questions answered & plan of care reviewed with Luli BRAMBILA.
[2022-03-07] MEDS: K and/or MAG REPLACEMENT MC SCH ×2 (07:18→20:00)
[2022-03-07] MEDS: normal saline 1000ml 1,000 ML IV SCH ×2 (07:25→23:45)
[2022-03-07] MEDS: docusate sod 100mg capsule PO SCH ×2 (07:27→19:14)
[2022-03-07] MEDS: pantoprazole 40mg Tablet.DR PO SCH (07:27)
[2022-03-07] MEDS: famotidine 20mg tablet PO SCH ×2 (07:27→19:14)
[2022-03-07] MEDS: lisinopril 10 MG tablet PO SCH (07:27)
[2022-03-07] MEDS: enoxaparin 40mg/0.4ml syringe SUBCUT SCH (07:28)
[2022-03-07 10:00] VITALS: BP 105/57
--- NOTE | 2022-03-07 10:54 | NUR ---
Malnutrition consult: Pt reports wt loss with decreased appetite per malnutrition risk screen with RN. Pt recently admitted with a documented wt of 80.91 kg, current scaled wt is 81.82 kg. Pt on a regular diet and eating well, documented with 100% PO intake of first meal, and with 100% PO intake at recent admit meeting estimated nutrient needs. Pt documented with severe muscle weakness localized to left leg and LLE 2+ edema, possibly r/t h/o left thigh fasciotomy secondary to cellulitis. Pt currently lacks a minimum of two criteria for malnutrition. Will continue to follow. Addendum: 03/07/22 at [address] Amended: Links added.
[2022-03-07 18:00] VITALS: BP 112/73
--- NOTE | 2022-03-07 18:28 | NUR ---
Problems reprioritized. Patient report given, questions answered & plan of care reviewed with Prudence.
--- NOTE | 2022-03-07 19:56 | NUR ---
Patient in room ORTHO 4024. I have received report from ALMITA BRAMBILA and had the opportunity to ask questions and assume patient care.
--- NOTE | 2022-03-07 22:00 | NUR ---
PATIENT REFUSED 2200 VITAL. NON COMPLIANT WITH PATIENT CARE AND VERBALLY ABUSIVE TO STAFF.
[2022-03-07] MEDS: traZODone 50mg tablet PO SCH (22:02)
--- NOTE | 2022-03-07 22:07 | NUR ---
PATIENT VERBALLY ABUSIVE WITH STAFF. NOT COMPLIANT WITH CARE AND INSISTING ON GETTING PAIN MEDS AROUND THE CLOCK. EDUCATED HIM ON OTHER METHODS TO DEAL WITH PAIN AND HE DOES NOT WANT TO LISTEN. HE HAS BEEN VERY DISRESPTIFUL. WILL NOTIFY CHARGE NURSE.
[2022-03-08] MEDS: HYDROmorphone inj. 0.5 MG/0.5 ML DISP.SYRIN IV PRN ×3 (00:01→21:42)
[2022-03-08 05:16] LABS: BASOPHILS % (AUTO) 0.6 % (0-1); EOSINOPHILS # (AUTO) 0.2 X10'3 (0-0.9); EOSINOPHILS % (AUTO) 3.2 % (0-6); HEMATOCRIT 40.9 % (42.0-52.0); HEMOGLOBIN 13.4 g/dl (14.0-17.9); LYMPHOCYTES # (AUTO) 1.6 X10'3 (1.1-4.8); LYMPHOCYTES % (AUTO) 23.1 % (21-51); MEAN CORPUSCULAR HEMOGLOBIN 28.3 PG (27.0-31.0); MEAN CORPUSCULAR HGB CONC 32.8 g/dL (33.0-36.5); MEAN CORPUSCULAR VOLUME 86.3 FL (78-98); MEAN PLATELET VOLUME 6.8 FL (7.4-10.4); MONOCYTES % (AUTO) 14.7 % (2-12); NEUTROPHILS # (AUTO) 4.1 X10'3 (1.8-7.7); NEUTROPHILS % (AUTO) 58.4 % (42-75); PLATELET COUNT 472 X10'3 (140-440); RED BLOOD COUNT 4.74 X10'6 (4.70-6.10); RED CELL DISTRIBUTION WIDTH 15.4 % (11.5-14.5); WHITE BLOOD COUNT 7.1 X10'3 (4.5-11.0)
[2022-03-08 05:27] LABS: ALBUMIN 3.3 G/DL (3.4-5.0); ANION GAP 10 (8-16); BLOOD UREA NITROGEN 25 MG/DL (7-18); BUN/CREATININE RATIO 31.6 (5.4-32.0); CALCIUM 8.9 MG/DL (8.5-10.1); CHLORIDE 103 MMOL/L (99-107); CREATININE 0.79 MG/DL (0.60-1.10); GLUCOSE 95 MG/DL (70-104); MAGNESIUM 2.1 MG/DL (1.5-2.4); POTASSIUM 4.3 MMOL/L (3.5-5.1); SODIUM 137 MMOL/L (135-145); TOTAL CARBON DIOXIDE 23.9 MMOL/L (24-32); eGFR > 90 ML/MIN
[2022-03-08 06:00] VITALS: BP 94/53
--- NOTE | 2022-03-08 06:39 | NUR ---
Problems reprioritized. Patient report given, questions answered & plan of care reviewed with COSTA BRAMBILA.
[2022-03-08] MEDS: lisinopril 10 MG tablet PO SCH (08:00)
[2022-03-08] MEDS: docusate sod 100mg capsule PO SCH ×2 (08:00→19:21)
[2022-03-08] MEDS: K and/or MAG REPLACEMENT MC SCH ×2 (08:00→20:00)
[2022-03-08] MEDS ORDERED: LORazepam 2 mg/ml vial IV PRN (08:50)
[2022-03-08] MEDS ORDERED: LORazepam 1 MG tablet PO PRN (08:50)
[2022-03-08] MEDS ORDERED: haloperidol 5mg tablet PO PRN (08:50)
[2022-03-08] MEDS ORDERED: haloperidol lactate 5mg/ml inj IM PRN (08:50)
[2022-03-08 09:09] LABS: C-REACTIVE PROTEIN 0.28 MG/DL (0.0-0.5)
[2022-03-08] MEDS: enoxaparin 40mg/0.4ml syringe SUBCUT SCH (09:43)
[2022-03-08] MEDS: pantoprazole 40mg Tablet.DR PO SCH (09:45)
[2022-03-08] MEDS: normal saline 1000ml 1,000 ML IV SCH ×2 (09:45→20:52)
[2022-03-08] MEDS: famotidine 20mg tablet PO SCH ×2 (09:45→19:19)
[2022-03-08] MEDS: thiamine 100mg tablet PO SCH (09:46)
[2022-03-08] MEDS: HYDROcodone/acetaminophen 10/325mg tab PO PRN ×3 (09:47→19:18)
[2022-03-08] MEDS: folic acid 1mg tablet PO SCH (09:48)
--- NOTE | 2022-03-08 09:58 | NUR ---
It was reported by SAMINA Barajas that pt had pulled out his call light from the wall. Upon arrival to his room the pt was angry toward this nurse that his am meds were not delivered earlier. He proceded to take all meds including [place] 10, at this time, but refused the colace. Stated LBM 03/07. Anthony held d/t SBP 94 this am. Pt also refused to allow a full physical assessment. Bárbara, photographers' model, witnessed this exchange.
[2022-03-08 10:00] VITALS: BP 92/57
[2022-03-08] MEDS: multivitamins, therapeutics tablet PO SCH (12:40)
[2022-03-08] MEDS ORDERED: LORazepam 1 MG tablet PO STA (13:08)
--- NOTE | 2022-03-08 13:30 | NUR ---
hybrid technologist's picked up pt for MRI via WC.
[2022-03-08 18:00] VITALS: BP 100/67
--- NOTE | 2022-03-08 18:30 | NUR ---
Patient report given, questions answered & plan of care reviewed with PATTY Major.
[2022-03-08] MEDS: traZODone 50mg tablet PO SCH (19:18)
--- NOTE | 2022-03-08 20:00 | NUR ---
Patient in room ORTHO 4024. I have received report from Beatriz Henderson RN and had the opportunity to ask questions and assume patient care.
[2022-03-08 22:00] VITALS: BP 114/84
[2022-03-09] MEDS: HYDROcodone/acetaminophen 10/325mg tab PO PRN ×2 (01:36→05:51)
[2022-03-09] MEDS: HYDROmorphone inj. 0.5 MG/0.5 ML DISP.SYRIN IV PRN ×2 (03:38→10:41)
[2022-03-09 05:14] LABS: BASOPHILS % (AUTO) 0.6 % (0-1); EOSINOPHILS # (AUTO) 0.3 X10'3 (0-0.9); EOSINOPHILS % (AUTO) 4.1 % (0-6); HEMATOCRIT 39.5 % (42.0-52.0); HEMOGLOBIN 13.3 g/dl (14.0-17.9); LYMPHOCYTES % (AUTO) 27.9 % (21-51); MEAN CORPUSCULAR HEMOGLOBIN 28.9 PG (27.0-31.0); MEAN CORPUSCULAR HGB CONC 33.6 g/dL (33.0-36.5); MEAN CORPUSCULAR VOLUME 85.9 FL (78-98); MEAN PLATELET VOLUME 7.2 FL (7.4-10.4); MONOCYTES # (AUTO) 1.3 X10'3 (0-0.9); MONOCYTES % (AUTO) 17.8 % (2-12); NEUTROPHILS # (AUTO) 3.6 X10'3 (1.8-7.7); NEUTROPHILS % (AUTO) 49.6 % (42-75); PLATELET COUNT 439 X10'3 (140-440); RED CELL DISTRIBUTION WIDTH 15.7 % (11.5-14.5); WHITE BLOOD COUNT 7.2 X10'3 (4.5-11.0)
[2022-03-09 05:31] LABS: ALBUMIN 3.2 G/DL (3.4-5.0); ANION GAP 8 (8-16); BLOOD UREA NITROGEN 30 MG/DL (7-18); BUN/CREATININE RATIO 35.7 (5.4-32.0); CALCIUM 8.4 MG/DL (8.5-10.1); CHLORIDE 106 MMOL/L (99-107); CREATININE 0.84 MG/DL (0.60-1.10); GLUCOSE 108 MG/DL (70-104); LIPASE 121 U/L (73-393); PHOSPHORUS 4.2 MG/DL (2.3-4.5); POTASSIUM 4.1 MMOL/L (3.5-5.1); SODIUM 139 MMOL/L (135-145); TOTAL CARBON DIOXIDE 24.7 MMOL/L (24-32); eGFR > 90 ML/MIN
[2022-03-09] MEDS: normal saline 1000ml 1,000 ML IV SCH (05:52)
--- NOTE | 2022-03-09 06:27 | NUR ---
Problems reprioritized. Patient report given, questions answered & plan of care reviewed with PATTY Hopson.
[2022-03-09 07:00] VITALS: BP 101/54
--- NOTE | 2022-03-09 07:27 | NUR ---
Patient in room ORTHO 4024. I have received report from Wanda BRAMBILA and had the opportunity to ask questions and assume patient care.
[2022-03-09] MEDS: famotidine 20mg tablet PO SCH (08:00)
[2022-03-09] MEDS: K and/or MAG REPLACEMENT MC SCH (08:00)
[2022-03-09] MEDS: docusate sod 100mg capsule PO SCH (08:34)
[2022-03-09] MEDS: pantoprazole 40mg Tablet.DR PO SCH (08:34)
[2022-03-09] MEDS: multivitamins, therapeutics tablet PO SCH (08:34)
[2022-03-09] MEDS: folic acid 1mg tablet PO SCH (08:35)
[2022-03-09] MEDS: thiamine 100mg tablet PO SCH (08:35)
[2022-03-09] MEDS: lisinopril 10 MG tablet PO SCH (08:36)
[2022-03-09] MEDS: enoxaparin 40mg/0.4ml syringe SUBCUT SCH (08:37)
--- NOTE | 2022-03-09 09:30 | NUR ---
Pt is upset because he wants Diluted every 2 hrs when he feels his pain comes back. Pt want to talk to the Dr. He is cussing, extremely rude, accusatory about not giving him enough meds and making him "suffer". he pulled the call light off the wall and threw it across the room towards the entry. Cussed and said that when he turns the light "you need to be here now not whenever you feel like it". Pt was educated on pain medications and explained the orders given. Pt shouted "GTH out of this room, get me the charge nurse!" Dr Was notified, of the level of aggression and rudeness.
[2022-03-09 10:48] VITALS: BP 116/72
[2022-03-09] MEDS ORDERED: oxyCODONE/APAP 5-325mg tablet PO PRN (12:10)
[2022-03-09] MEDS ORDERED: oxyCODONE/APAP 10/325mg tablet PO PRN ×2 (12:10)
--- NOTE | 2022-03-09 14:55 | NUR ---
PAGER ID: [phone] MESSAGE: Chandler Andrade#[phone]- FYI- MRI results are up, Pt insisting in seeing you. Extremely rude. PT about to assess him. Please advice. Thank you. Kori Llamas [phone]
--- NOTE | 2022-03-09 15:30 | NUR ---
Pt continue to be rude and verbally abusive. Called staff, including myself liars and refusing care. Pt would not allow myself or COMPARATIVE SOCIOLOGY PROFESSOR to assist on transfer to [facility]. Pt stood on his own, and transferred himself with easy. pt continue to ask for pain meds. changed pts medications to try to meet pts needs.
[2022-03-09] MEDS ORDERED: AMOX-117 PO (16:09)
[2022-03-09] MEDS ORDERED: GABA-534 PO (16:24)
--- NOTE | 2022-03-09 17:20 | NUR ---
patient continues to be extremely rude towards staff . seen by Dr Bryant is for discharge. All DC instructions given to patient med sent to [facility] on [address] [facility] [address]. see note from PT with regards ambulation . MRI negative. patient . [facility] to [facility] via [facility] with security guards taking patient to lobby . patient stated he lives with girlfriend but that she cannot pick him up. when asked why he stated that she was having foot surgery tomorrow and couldn't pick him up. When asked for her address, patient would not provide address. Dc to wait for taxi in lobby [id number].
== END 2022-03-09 17:30 | disposition home or self-care (01) | DRG 552 ==
LOC: ER 12:04 → ED HOLD 17:47 → ORTHO 4S 21:10 → OBSVTOIN 03-07 09:00
PROVIDERS: ADMIT Family Medicine; ATTEND Family Medicine
DX: M54.30 Sciatica, unspecified side (principal); L03.116 Cellulitis of left lower limb; E78.00 Pure hypercholesterolemia, unspecified; F12.90 Cannabis use, unspecified, uncomplicated; F15.90 Other stimulant use, unspecified, uncomplicated; F17.210 Nicotine dependence, cigarettes, uncomplicated; I10 Essential (primary) hypertension; W18.09XA Striking against other object with subsequent fall, initial encounter; G89.29 Other chronic pain; M54.9 Dorsalgia, unspecified; J44.9 Chronic obstructive pulmonary disease, unspecified; K59.00 Constipation, unspecified; Z90.5 Acquired absence of kidney; Z56.0 Unemployment, unspecified; Z59.00 Homelessness unspecified; Z88.2 Allergy status to sulfonamides; Y93.89 Activity, other specified; Y92.89 Other specified places as the place of occurrence of the external cause; Y99.8 Other external cause status; Z87.440 Personal history of urinary (tract) infections; Z71.51 Drug abuse counseling and surveillance of drug abuser
CPT/HCPCS: 36415; 72131; 73502; 73721; 74176; 80048; 80053; 83690; 83735; 84100; 85025; 85610; 86140; 87081; 96374; 96375; 96376; 97162; 97530; 99285; A6258; G0378; J1170; J1650; J1885; J2270; J2405; J7030

== ENCOUNTER 2022-07-27 16:22 | Emergency (ER) | payer MEDICARE ==
[~2022-07-27] VITALS: Ht 180.3 cm; Wt 86.0 kg
[~2022-07-27 16:22] MED LIST changes: +GABA-534 PO; -TRAM50TA2 PO
--- NOTE | 2022-07-27 17:03 | NUR ---
FIRST CONTACT. PT IS AO4 STRONG SMELL OF SOOT. DENIES RESPIRATORY ISSUES. MOIST MUCUS MEMBRANES CLEAR LUNGS SOUNDS. LEFT SIDE TOES SHOW BLISTERS WITH SKIN INTACT. PT STATES ANKEL SEEMS SWOLLEN SLIGHT TENDERNESS WITH PALP.
[2022-07-27] MEDS ORDERED: bacitracin 15gm ointment TP ONE (17:05)
[2022-07-27] MEDS ORDERED: ibuprofen tablet 400 MG TABLET PO ONE (17:05)
[2022-07-27] MEDS ORDERED: acetaminophen 325mg tablet PO ONE (17:05)
[2022-07-27] MEDS ORDERED: LISI10TA27 PO (17:16)
[2022-07-27] MEDS ORDERED: FLUT16SP2 BOTHNARES (17:16)
[2022-07-27] MEDS ORDERED: AMOX-100 PO (17:16)
[2022-07-27] MEDS ORDERED: FLO44IN IH (17:16)
[2022-07-27] MEDS ORDERED: TRAZ-256 PO (17:16)
--- NOTE | 2022-07-27 18:10 | NUR ---
PT LEFT FOOT CLEANED WITH BETADINE AND WARM WATER. SOAKED FOR 10 MIN. PT AFFECTED TOES HAVE BEEN LIGHTLY COVERED WITH BACITRACIN AND DRESSED. FOOT WAS WRAPPED WITH JAYLAN BANDAGE AND A ORTHO BOOT WAS PROVIDED BECAUSE OTHER SHOE WAS BURNT. PT WAS GIVEN A SANDWICH AND DRINK. [facility] WAS CALLED AND THEY WILL RECEIVE HIM FOR THE NIGHT.
[2022-07-27 18:16] VITALS: BP 133/80
== END 2022-07-27 18:29 | disposition home or self-care (01) ==
LOC: ER 16:24
DX: T25.222A Burn of second degree of left foot, initial encounter (principal); E78.00 Pure hypercholesterolemia, unspecified; I10 Essential (primary) hypertension; J44.9 Chronic obstructive pulmonary disease, unspecified; F12.90 Cannabis use, unspecified, uncomplicated; F15.90 Other stimulant use, unspecified, uncomplicated; Z87.440 Personal history of urinary (tract) infections; Z98.890 Other specified postprocedural states; Z72.89 Other problems related to lifestyle; Z56.0 Unemployment, unspecified; Z59.00 Homelessness unspecified; Z88.1 Allergy status to other antibiotic agents; Z88.8 Allergy status to other drugs, medicaments and biological substances; Z79.2 Long term (current) use of antibiotics; Z79.899 Other long term (current) drug therapy
CPT/HCPCS: 16020; 99284; L3265; A6258; A6449

== ENCOUNTER 2022-08-03 17:44 | Emergency (ER) | payer MEDICARE ==
[~2022-08-03] VITALS: Ht 180.3 cm; Wt 86.0 kg
[~2022-08-03 17:44] MED LIST changes: +AMOX-100 PO; +FLO44IN IH; +FLUT16SP2 BOTHNARES
[2022-08-03 17:51] VITALS: BP 139/81
[2022-08-03] MEDS ORDERED: DOXYCYCLINE 100MG CAPSULE PO STA (19:17)
--- NOTE | 2022-08-03 19:17 | NUR ---
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
[2022-08-03] MEDS ORDERED: rifampin 300mg capsule PO SCH (20:00)
== END 2022-08-03 20:23 | disposition home or self-care (01) ==
LOC: ER 17:45
DX: T24.202D Burn of second degree of unspecified site of left lower limb, except ankle and foot, subsequent encounter (principal); L03.032 Cellulitis of left toe; E78.00 Pure hypercholesterolemia, unspecified; I10 Essential (primary) hypertension; J44.9 Chronic obstructive pulmonary disease, unspecified; F12.90 Cannabis use, unspecified, uncomplicated; F15.90 Other stimulant use, unspecified, uncomplicated; Z87.440 Personal history of urinary (tract) infections; Z98.890 Other specified postprocedural states; Z72.89 Other problems related to lifestyle; Z59.00 Homelessness unspecified; Z56.0 Unemployment, unspecified; Z88.1 Allergy status to other antibiotic agents; Z79.2 Long term (current) use of antibiotics; Z79.899 Other long term (current) drug therapy; X58.XXXD Exposure to other specified factors, subsequent encounter
CPT/HCPCS: 99283; J7030; A6258

== ENCOUNTER 2022-08-18 14:01 | Emergency (ER) | payer MEDICARE ==
[~2022-08-18] VITALS: Ht 167.6 cm; Wt 88.0 kg
[~2022-08-18 14:01] MED LIST changes: -AMOX-100 PO
[2022-08-18] MEDS ORDERED: ondansetron/PF 4mg/2ml inj IV ONE (15:20)
[2022-08-18] MEDS ORDERED: normal saline 1000ml 1,000 ML IV ONE ×2 (15:20→16:30)
[2022-08-18 15:52] LABS: BASOPHILS % (AUTO) 0.2 % (0-1); EOSINOPHILS # (AUTO) 0.2 X10'3 (0-0.9); EOSINOPHILS % (AUTO) 1.6 % (0-6); HEMATOCRIT 42.3 % (42.0-52.0); HEMOGLOBIN 13.6 g/dl (14.0-17.9); LYMPHOCYTES # (AUTO) 0.4 X10'3 (1.1-4.8); LYMPHOCYTES % (AUTO) 2.9 % (21-51); MEAN CORPUSCULAR HEMOGLOBIN 28.3 PG (27.0-31.0); MEAN CORPUSCULAR HGB CONC 32.1 g/dL (33.0-36.5); MEAN CORPUSCULAR VOLUME 88.2 FL (78-98); MEAN PLATELET VOLUME 6.9 FL (7.4-10.4); MONOCYTES # (AUTO) 0.6 X10'3 (0-0.9); MONOCYTES % (AUTO) 4.2 % (2-12); NEUTROPHILS # (AUTO) 13.4 X10'3 (1.8-7.7); NEUTROPHILS % (AUTO) 91.1 % (42-75); PLATELET COUNT 300 X10'3 (140-440); RED CELL DISTRIBUTION WIDTH 14.5 % (11.5-14.5); WHITE BLOOD COUNT 14.7 X10'3 (4.5-11.0)
[2022-08-18 16:11] LABS: ALANINE AMINOTRANSFERASE 36 U/L (12-78); ALBUMIN 3.4 G/DL (3.4-5.0); ALBUMIN/GLOBULIN RATIO 0.8 (1.1-1.5); ALKALINE PHOSPHATASE 104 IU/L (46-116); ANION GAP 8 (8-16); ASPARTATE AMINO TRANSFERASE 27 U/L (10-37); BILIRUBIN,TOTAL 0.3 MG/DL (0.1-1.0); BLOOD UREA NITROGEN 31 MG/DL (7-18); BUN/CREATININE RATIO 33.3 (5.4-32.0); CALCIUM 8.8 MG/DL (8.5-10.1); CHLORIDE 106 MMOL/L (99-107); CREATININE 0.93 MG/DL (0.60-1.10); GLUCOSE 104 MG/DL (70-104); LIPASE 83 U/L (73-393); POTASSIUM 4.6 MMOL/L (3.5-5.1); SODIUM 139 MMOL/L (135-145); TOTAL CARBON DIOXIDE 24.8 MMOL/L (24-32); TOTAL PROTEIN 7.5 G/DL (6.4-8.2); eGFR 82 ML/MIN
[2022-08-18] MEDS ORDERED: proCHLORperazine 10 MG/2 ml inj IV ONE (16:30)
[2022-08-18] MEDS ORDERED: ketorolac trometh. 30mg/ml inj. IV ONE (16:30)
[2022-08-18 16:54] VITALS: BP 116/71
[2022-08-18] MEDS ORDERED: ONDA4TAB12 PO (17:03)
--- NOTE | 2022-08-18 18:18 | NUR ---
pt passed po challenge. pt had oj, crackers and jello
== END 2022-08-18 18:20 | disposition home or self-care (01) ==
LOC: ER 14:02
DX: K52.89 Other specified noninfective gastroenteritis and colitis (principal); J44.9 Chronic obstructive pulmonary disease, unspecified; E78.00 Pure hypercholesterolemia, unspecified; I10 Essential (primary) hypertension; F12.10 Cannabis abuse, uncomplicated; F15.10 Other stimulant abuse, uncomplicated; Z59.00 Homelessness unspecified; Z56.0 Unemployment, unspecified; Z88.2 Allergy status to sulfonamides; Z88.8 Allergy status to other drugs, medicaments and biological substances; Z79.899 Other long term (current) drug therapy; Z79.1 Long term (current) use of non-steroidal anti-inflammatories (NSAID); Z79.2 Long term (current) use of antibiotics
CPT/HCPCS: 36415; 80053; 83690; 85025; 96361; 96374; 96375; 99284; J0780; J1885; J2405; J7030

== ENCOUNTER 2024-10-08 17:37 | Emergency (ER) | payer MEDICARE ==
[~2024-10-08] VITALS: Ht 182.9 cm; Wt 85.5 kg
[~2024-10-08 17:37] MED LIST changes: -GABA-534 PO; +GABA-535 PO; +ONDA-243 PO
[2024-10-08 17:39] VITALS: BP 175/98; PULSE 103; RESP 20; O2SAT 97
[2024-10-08] MEDS: ketorolac trometh 30MG/ML vial 30 MG/ML VIAL IM ONE (19:23)
[2024-10-08] MEDS ORDERED: CYCL-1 PO (20:49)
[2024-10-08] MEDS ORDERED: LIDO700A32 TOP (20:49)
[2024-10-08 20:59] VITALS: TEMP 98.2
== END 2024-10-08 21:00 | disposition home or self-care (01) ==
LOC: ER 17:38
DX: S40.011A Contusion of right shoulder, initial encounter (principal); E78.00 Pure hypercholesterolemia, unspecified; I10 Essential (primary) hypertension; F12.90 Cannabis use, unspecified, uncomplicated; F15.90 Other stimulant use, unspecified, uncomplicated; J44.9 Chronic obstructive pulmonary disease, unspecified; Z88.1 Allergy status to other antibiotic agents; Z88.2 Allergy status to sulfonamides; Z88.8 Allergy status to other drugs, medicaments and biological substances; V89.2XXA Person injured in unspecified motor-vehicle accident, traffic, initial encounter; Y93.89 Activity, other specified; Y92.89 Other specified places as the place of occurrence of the external cause; Y99.8 Other external cause status
CPT/HCPCS: 73030; 73060; 73502; 99284

== ENCOUNTER 2025-01-06 21:11 | Emergency (ER) | payer MEDICARE, OTHER ==
[~2025-01-06] VITALS: Ht 180.3 cm; Wt 78.0 kg
[~2025-01-06 21:11] MED LIST changes: +CYCL-1 PO; +LIDO-52 TOP
[2025-01-06] MEDS: morphine 4 MG/ML inj SYRINge IV ONE (21:22)
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
--- NOTE | 2025-01-06 21:59 | RADIOLOGY REPORT ---
CLINICAL INDICATION: Shoulder pain post fall TECHNIQUE: 2 radiographic views of the right shoulder were obtained. Comparison: DI SHOULDER, COMPLETE (MIN 2 VWS) on DOS: 10/08/24 FINDINGS/IMPRESSION: There is no evidence of acute fracture or dislocation. Moderate to severe degenerative changes of the right AC joint. Calcific tendinitis is noted lateral t o the humeral head. The visualized lungs are clear.
[2025-01-06] MEDS ORDERED: CYCL-1 PO (22:26)
[2025-01-06] MEDS: ondansetron/PF 4mg/2ml inj IV PRN (22:44)
[2025-01-06 22:50] VITALS: BP 113/68; PULSE 79; RESP 26; TEMP 98.8; O2SAT 94
== END 2025-01-06 22:53 | disposition home or self-care (01) ==
LOC: ER 21:12
DX: M62.838 Other muscle spasm (principal); M25.511 Pain in right shoulder; F12.90 Cannabis use, unspecified, uncomplicated; F15.90 Other stimulant use, unspecified, uncomplicated; E78.00 Pure hypercholesterolemia, unspecified; I10 Essential (primary) hypertension; J44.9 Chronic obstructive pulmonary disease, unspecified; Z88.2 Allergy status to sulfonamides; Z88.8 Allergy status to other drugs, medicaments and biological substances; Z79.899 Other long term (current) drug therapy; Z56.0 Unemployment, unspecified; Z59.00 Homelessness unspecified
CPT/HCPCS: 73030; 96374; 99284; J2270

== ENCOUNTER 2025-04-18 18:21 | Emergency (ER) | payer MEDICARE, MEDICAID ==
[~2025-04-18] VITALS: Ht 177.8 cm; Wt 86.4 kg
--- NOTE | 2025-04-18 18:58 | ELECTROCARDIOGRAPH REPORT ---
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
--- NOTE | 2025-04-18 19:09 | RADIOLOGY REPORT ---
CHEST RADIOGRAPH REASON FOR EXAM: Chest pain COMPARISON: CHEST,SINGLE VIEW on DOS: 02/25/22 TECHNIQUE: One view of the chest is provided FINDINGS: The cardiomediastinal silhouette is within normal limits for technique. There is no focal airspace disease. There is no significant pleural effusion. No acute bony abnormality is identified. IMPRESSION: No radiographic evidence of acute cardiopulmonary process.
[2025-04-18 19:48] LABS: MEAN PLATELET VOLUME 6.9 FL (7.4-10.4); RED CELL DISTRIBUTION WIDTH 13.9 % (11.5-14.5)
[2025-04-18 20:10] LABS: CREATININE 0.77 MG/DL (0.60-1.10); PRO BRAIN NATRIURETIC PEPTIDE 223 PG/ML (0-125); TOTAL CARBON DIOXIDE 28.1 MMOL/L (24-32); eCRCL 99 ML/MIN; eGFR > 90 ML/MIN
--- NOTE | 2025-04-18 20:43 | Physician Documentation ---
History of Present Illness ~ General Chief Complaint: Multiple Medical Complaints Stated Complaint: SWOLLEN GLANDS Time Seen by MD: 20:43 Primary Medical Doctor: luis felipe calabrese History of Present Illness Initial Comments Patient presents to the emergency room with concerns from swollen lymph clamps under his neck and infection to his nose. Noticed over the past couple of days that has developed infection inside that has rice nostril. He attributes this to recent cold resulting in and blowing that has nose often. No fevers. He states the pain from swollen lymph node seems to be radiating to his upper neck and chest. Medication Reconciliation Allergies: Coded Allergies: sulfamethoxazole (Verified Allergy, Intermediate, swelling, sores in mouth and on penis, 08/18/22) trimethoprim (Verified Allergy, Intermediate, swelling, sores in mouth and on penis, 08/18/22) Scheduled Amox Tr/Potassium Clavulanate (Augmentin 875-125 Tablet), 1 TAB PO Q12H Cyclobenzaprine* (Cyclobenzaprine*), 1 TAB PO HS Famotidine (Famotidine), 1 TAB PO BID, (Reported) Fluticasone Propionate (Fluticasone Propionate), 2 SPRAY NS DAILY, (Reported) Fluticasone Propionate (Flonase), 2 SPRAYS BOTHNARES DAILY Fluticasone Propionate (Flovent Hfa), 2 PUFFS IH BID Gabapentin (Gabapentin), 1 CAP PO Q8H Lansoprazole (Lansoprazole), 1 CAP PO DAILY, (Reported) Lidocaine (Lidoderm), 1 PATCH TOP DAILY Lisinopril (Lisinopril), 1 TAB PO DAILY, (Reported) Lisinopril (Lisinopril), 1 TAB PO DAILY Trazodone HCl (Trazodone HCl), 1 TAB PO HS, (Reported) Trazodone HCl (Trazodone HCl), 1 TAB PO HS Scheduled PRN Cyclobenzaprine* (Cyclobenzaprine*), 1 TAB PO TID PRN for muscle spasms ONDANSETRON ODT 4mg tablet (Ondansetron Odt), 1 TABLET PO Q6H PRN for nausea/vomiting albuterol inhaler (Pro-Air Inhaler), 2 PUFFS IH Q4H PRN for SOB or wheezing, (Reported) Past Medical History Past Medical History: High Cholesterol, Hypertension, COPD, *RENAL/*, UTI Past Surgical History: orthopedic surgeries, other Other Past Surgical History: right nephrectomy, left thigh fasciotomy Alcohol Use: Heavy Drug Use: marijuana, methamphetamine Lives with: Spouse Lives In: Homeless Occupation: unemployed Review of Systems ROS All review of systems negative except as per HPI Physical Exam Physical Exam Vital Signs: Temperature: 98.3, Source: Oral, Heart Rate: 106, Respiratory Rate: 16, BP: 159/96, Pulse Oximetry: 96, Weight: 86.360 Oxygen Flow Rate: 0 Physical Exam General: Patient is awake, alert, oriented x4 in no acute distress Head: Normocephalic and atraumatic. Eyes: Conjunctival normal. EOMI. PERRL. ENT: Mucous membranes moist. Draining sore noted in right nostril. Associated erythema of nose. Neck: Supple, trachea is midline. Bilateral submandibular lymphadenopathy Chest: Clear to auscultation bilaterally without rales, rhonchi, or wheezes. There is no accessory muscle use or retractions. Cardiac: RRR without murmurs, gallops, or rubs. Progress Results/Orders Results/Orders Orders - RAYMUNDO PARNELL MD Chest,Single View (04/18/25 18:47) Monitor (04/18/25 18:40) Saline Lock (04/18/25 18:40) Oxygen (04/18/25 18:40) Completed Orders - RAYMUNDO PARNELL MD Chest,Single View (04/18/25 18:47) Cbc/Diff (04/18/25 18:40) BMP (04/18/25 18:40) PBNP (04/18/25 18:40) Electrocardiogram (04/18/25 18:40) Hs Troponin I W Calculations (04/18/25 18:40) Vital Signs 04/18/25 18:35 Temp 98.3 Pulse 106 Resp 16 B/P (MAP) 159/96 Pulse Ox 96 O2 Flow Rate 0 Laboratory Tests Test 04/18/25 18:46 04/18/25 19:42 Troponin I High Sensitivity 8 White Blood Count 12.1 H Red Blood Count 4.55 L Hemoglobin 13.4 L Hematocrit 39.7 L Mean Corpuscular Volume 87.4 Mean Corpuscular Hemoglobin 29.4 Mean Corpuscular Hemoglobin Concent 33.7 Red Cell Distribution Width 13.9 Platelet Count 292 Mean Platelet Volume 6.9 L Neutrophils (%) (Auto) 73.6 Lymphocytes (%) (Auto) 14.8 L Monocytes (%) (Auto) 10.3 Eosinophils (%) (Auto) 1.1 Basophils (%) (Auto) 0.2 Neutrophils # (Auto) 8.9 H Lymphocytes # (Auto) 1.8 Monocytes # (Auto) 1.2 H Eosinophils # (Auto) 0.1 Basophils # (Auto) 0.0 CBC Comment Sodium Level 142 Potassium Level 4.4 Chloride Level 106 Carbon Dioxide Level 28.1 Anion Gap 8 Blood Urea Nitrogen 20 H Creatinine 0.77 Estimated GFR/1.73 m2 > 90 BUN/Creatinine Ratio 26.0 H Glucose Level 101 Calcium Level 8.6 Pro-B-Type Natriuretic Peptide 223 H Albumin 3.2 L Chemistry Comments Medical Decision Making Additional information obtaine: N/A Findings Patient presents to the emergency room for evaluation of infection in his nose and some lymph nodes. Differentials include but are not limited to abscess, cellulitis, sepsis. Labs ordered mild leukocytosis but otherwise reassuring. Patient has received an injection of antibiotics here to get a jump on his infection as that has located in the danger triangle of the face. ER precautions discussed. Differential Diagnosis Cellulitis abscess sepsis Departure Disposition: HOME / SELF CARE / HOMELESS Impression: Primary Impression: Abscess Condition: Stable Discharge Instructions: Abscess, Care After Referrals: NO PRIMARY CARE PROVIDER (PCP) Prescriptions Amox Tr/Potassium Clavulanate (Augmentin 500-125 Tablet) 1 Each Tablet 1 TAB PO Q12H for 10 Days, #20 TAB Prov: RAYMUNDO PARNELL MD 04/18/25 Signature Scribe Signature: No scribe Attestation: The note accurately reflects work and decisions made by me.Raymundo Parnell MD 04/18/25 20:51 RAYMUNDO PARNELL MD Apr 18, 2025 20:43
[2025-04-18] MEDS ORDERED: AMOX-115 PO (20:51)
[2025-04-18] MEDS: amox tr/potassium clavulanate 500mg/125mg TAB PO ONE (21:23)
[2025-04-18] MEDS: ibuprofen tablet 400 MG TABLET PO ONE (21:23)
[2025-04-18] MEDS: ondansetron 4mg rapidly disintigrating tab PO ONE (21:24)
[2025-04-18] MEDS: TETanus/Pertussis (Acell)/Diphther VAC/PF (Tdap-Adult) 0.5ml syringe IMVAC ONE (21:26)
[2025-04-18] MEDS: ceFAZolin 1gm IM kit IM ONE (21:27)
[2025-04-18 21:59] VITALS: BP 128/81; PULSE 76; RESP 18; TEMP 98.3; O2SAT 95
== END 2025-04-18 22:02 | disposition home or self-care (01) ==
LOC: ER 18:22
DX: J34.0 Abscess, furuncle and carbuncle of nose (principal); R06.02 Shortness of breath; J44.9 Chronic obstructive pulmonary disease, unspecified; I10 Essential (primary) hypertension; E78.00 Pure hypercholesterolemia, unspecified; F12.90 Cannabis use, unspecified, uncomplicated; F15.90 Other stimulant use, unspecified, uncomplicated; Z88.1 Allergy status to other antibiotic agents; Z88.2 Allergy status to sulfonamides; Z88.8 Allergy status to other drugs, medicaments and biological substances; Z90.5 Acquired absence of kidney
CPT/HCPCS: 36415; 71045; 80048; 83880; 84484; 85025; 90715; 93005; 96372; 99285; G0008; J0690; 90471